=== PATIENT | male | born 1995 | race Caucasian/White ===

== ENCOUNTER 2017-08-10 08:10 | Emergency (ER) | payer MEDICAID, OTHER ==
--- NOTE | 2017-08-10 08:37 | ED Physician Documentation ---
PD HPI ABD PAIN - Stated complaint Stated Complaint: L SIDE ABD PX - Chief complaint Chief Complaint: Abd Pain - History obtained from History obtained from: Patient - History of Present Illness Timing - onset: Yesterday Timing - duration: Days (1) Timing - details: Gradual onset, Still present Quality: Sharp, Pain Location: LLQ Radiation: Left flank Improved by: Laying still Worsened by: Moving, Position, Palpation Associated symptoms: Nausea, Diarrhea Similar symptoms before: Has not had sx before Recently seen: Not recently seen - Additional information Additional information: 22 y/o male previously healthy has developed diarrhea X 2 days and abdominal pain has now begun. He has pain in the left side and the area is tender. He has not had fever or vomiting. He reports green/yellow stool day one then orange yesterday and solid this morning. Review of Systems Constitutional: denies: Fever Eyes: denies: Decreased vision Ears: denies: Ear pain Nose: denies: Congestion Throat: denies: Sore throat Cardiac: denies: Chest pain / pressure, Palpitations Respiratory: denies: Dyspnea, Cough GI: reports: Abdominal Pain, Diarrhea. denies: Vomiting : denies: Dysuria, Frequency Skin: denies: Rash PD PAST MEDICAL HISTORY - Past Surgical History Past Surgical History: No - Present Medications Home Medications: Ambulatory Orders Medication Instructions Recorded Confirmed HYDROcod/ACETAM 5/325 [Morgan 5/325] 1 - 2 ea PO Q6H PRN #15 tablet 08/10/17 - Allergies Allergies/Adverse Reactions: Allergies Allergy/AdvReac Type Severity Reaction Status Date / Time No Known Drug Allergies Allergy Verified 08/10/17 08:17 - Social History Does the pt smoke?: No Smoking Status: Never smoker Does the pt drink ETOH?: No Does the pt have substance abuse?: No - Immunizations Immunizations are current?: Yes - POLST Patient has POLST: No PD ED PE NORMAL - Vitals Vital signs reviewed: Yes (tachy and hypertensive) - General General: Alert and oriented X 3, No acute distress, Well developed/nourished - HEENT HEENT: Atraumatic, PERRL, EOMI - Neck Neck: Supple, no meningeal sign - Cardiac Cardiac: RRR, No murmur - Respiratory Respiratory: No respiratory distress, Clear bilaterally - Abdomen Abdomen: Soft, Other (LLQ tenderness localized and without referred tenderness) - Back Back: No CVA TTP, No spinal TTP - Derm Derm: Normal color, Warm and dry, No rash - Extremities Extremities: No deformity, No edema - Neuro Neuro: No motor deficit, No sensory deficit Eye Opening: Spontaneous Motor: Obeys Commands Verbal: Oriented GCS Score: 15 - Psych Psych: Normal mood, Normal affect Results - Vitals Vitals: Vital Signs - 24 hr 08/10/17 08:14 Temperature 36.2 C L Heart Rate 138 H Respiratory 16 Rate Blood Pressure 138/85 H O2 Saturation 99 Oxygen O2 Source Room air - Labs Labs: Laboratory Tests 08/10/17 08/10/17 08/10/17 08:44 08:44 08:50 WBC 8.6 RBC 5.45 Hgb 16.6 Hct 48.4 MCV 88.7 MCH 30.4 MCHC 34.2 RDW 12.9 Plt Count 244 MPV 6.8 L Neut # 5.4 Lymph # 2.3 [place] # 0.8 Eos # 0.2 Baso # 0.0 Absolute Nucleated RBC 0.00 Nucleated RBC % 0.0 Sodium 138 Potassium 3.7 Chloride 101 Carbon Dioxide 26 Anion Gap 11.0 BUN 17 Creatinine 0.8 Estimated GFR (MDRD) 119 Glucose 101 H Calcium 9.3 Total Bilirubin 0.5 AST 25 ALT 48 Alkaline Phosphatase 65 Total Protein 7.5 Albumin 4.4 Globulin 3.1 Albumin/Globulin Ratio 1.4 Lipase 19 L Urine Color YELLOW Urine Clarity CLEAR Urine pH 6.0 Ur Specific [place] 1.025 Urine Protein NEGATIVE Urine Glucose (UA) NEGATIVE Urine Ketones NEGATIVE Urine Occult Blood NEGATIVE Urine Nitrite NEGATIVE Urine Bilirubin NEGATIVE Urine Urobilinogen 0.2 (NORMAL) Ur Leukocyte Esterase NEGATIVE Ur Microscopic Review NOT INDICATED Urine Culture Comments NOT INDICATED - Rads (name of study) CT ab/pel with Radiology: Prelim report reviewed (Impression: 1. Distal descending colon epiploic appendage otitis.2. Normal appendix. No bowel obstruction. No diverticulitis. 3. Normal CT appearance of the gallbladder and pancreas.), EMP read indepedently, See rad report Procedures - IVC sono (time) 0868 Bedside IVC sono: IVC measures (cm) (1.53), IVC collapsed c insp (cm) (0.78), Euvolemia PD MEDICAL DECISION MAKING - ED course Complexity details: reviewed old records, reviewed results, re-evaluated patient , considered differential, d/w patient ED course: Previously healthy 22-year-old male with acute diarrheal illness and now left lower quadrant pain. On examination he has tenderness to the left lower quadrant he is euvolemic and studies are undertaken. Departure - Departure Disposition: 01 Home, Self Care Clinical Impression: Epiploic appendagitis Condition: Stable Instructions: Abdominal Pain Follow-Up: [facility] [Provider Group] [facility] [Provider Group] Prescriptions: HYDROcod/ACETAM 5/325 [Morgan 5/325] 1 - 2 ea PO Q6H PRN #15 tablet PRN Reason: Pain Comments: Today you have been diagnosed with epiploic appendage otitis. This is a benign condition that should self resolve. You may have pain for up to 14 days. Should not affect your ability to eat and you should not get fever or vomiting associated.
[2017-08-10 08:59] LABS: BASOPHILS % (AUTO) 0.4 %; EOSINOPHILS # (AUTO) 0.2 10^3/uL (0.0-0.7); EOSINOPHILS % (AUTO) 2.2 %; HCT - HEMATOCRIT 48.4 % (42.0-52.0); HGB - HEMOGLOBIN 16.6 g/dL (14.0-18.0); LYMPHOCYTES # (AUTO) 2.3 10^3/uL (1.5-3.5); LYMPHOCYTES % (AUTO) 26.3 %; MEAN CORPUSCULAR HEMOGLOBIN 30.4 pg (27.0-31.0); MEAN CORPUSCULAR HGB CONC 34.2 g/dL (32.0-36.0); MEAN CORPUSCULAR VOLUME 88.7 fL (80.0-94.0); MEAN PLATELET VOLUME 6.8 fL (7.4-11.4); MONOCYTES # (AUTO) 0.8 10^3/uL (0.0-1.0); MONOCYTES % (AUTO) 8.9 %; NEUTROPHILS # (AUTO) 5.4 10^3/uL (1.5-6.6); NEUTROPHILS % (AUTO) 62.2 %; RED BLOOD COUNT 5.45 10^6/uL (4.70-6.10); RED CELL DISTRIBUTION WIDTH 12.9 % (12.0-15.0); UNCORRECTED WHITE BLOOD COUNT 8.6 x10^3/uL; WHITE BLOOD COUNT 8.6 x10^3/uL (4.8-10.8)
[2017-08-10 09:03] LABS: ALBUMIN/GLOBULIN RATIO 1.4 (1.0-2.2); BILIRUBIN,TOTAL 0.5 mg/dL (0.2-1.0); CALCIUM 9.3 mg/dL (8.5-10.3); CREATININE 0.8 mg/dL (0.6-1.2); POTASSIUM 3.7 mmol/L (3.5-5.0); TOTAL PROTEIN 7.5 g/dL (6.7-8.2)
[2017-08-10 09:05] LABS: BILIRUBIN,URINE NEGATIVE (NEGATIVE)
[2017-08-10 09:07] LABS: UA CHARGE (STRIP ONLY) YES; UR CULTURE IF IND NOT INDICATED
[2017-08-10] MEDS ORDERED: IOPAMIDOL-300 100 ML VIAL IVP ONE (09:49)
[2017-08-10] MEDS ORDERED: IOPAMIDOL-300 100 ML VIAL ONE (09:57)
--- NOTE | 2017-08-10 10:11 | CT Preliminary Report ---
Exam: CT ABDOMEN/PELVIS W/ IMPRESSION: 1. Distal descending colon epiploic appendagitis. 2. Normal appendix. No bowel obstruction. No diverticulitis. 3. Normal CT appearance of the gallbladder and pancreas. [facility] SITE ID: [id number]
--- NOTE | 2017-08-10 10:13 | CT Report ---
EXAM: CT ABDOMEN AND PELVIS EXAM DATE: 08/10/2017 09:44 AM. CLINICAL HISTORY: LLQ tenderness. COMPARISONS: None. TECHNIQUE: Routine helical CT imaging was performed through the abdomen and pelvis. IV contrast: 100M L OF ISOVUE 300. Enteric contrast: No. Reconstructions: Coronal and sagittal. In accordance with CT protocol optimization, one or more of the following dose reduction techniques w ere utilized for this exam: automated exposure control, adjustment of mA and/or KV based on patient s ize, or use of iterative reconstructive technique. FINDINGS: Lung Bases: Minimal basilar scar/atelectasis. Included portions of the heart are unremarkable. Liver: Mild fatty liver. No hepatic lesions. Gallbladder/Bile Ducts: Unremarkable. Spleen: Normal. Pancreas: Normal. Adrenal Glands: Normal. Kidneys: Normal. No masses or hydronephrosis. Peritoneal Cavity/Bowel: Small bowel is unremarkable. No small bowel wall thickening. No bowel obstru ction. Small to moderate volume of stool is seen in the colon. Along the ventral margin of the distal descending colon there is mild stranding largely surrounding a focus of fat with a central focus of high density, findings are consistent with focal epiploic appendagitis. No evidence of diverticulitis . The appendix is well visualized and normal. Pelvic Organs: Normal. The bladder and visualized pelvic organs are within normal limits. Vasculature: No aneurysms or other significant abnormality. Bones: No significant abnormality. Other: None. IMPRESSION: 1. Distal descending colon epiploic appendagitis. 2. Normal appendix. No bowel obstruction. No diverticulitis. 3. Normal CT appearance of the gallbladder and pancreas. [facility] Referring Provider Line: [phone] SITE ID: [id number]
[2017-08-10 10:58] VITALS: BP 137/91
== END 2017-08-10 11:01 | disposition home or self-care (01) ==
LOC: ED 08:10
DX: K63.89 Other specified diseases of intestine (principal)
CPT/HCPCS: 36415; 74177; 80053; 81003; 83690; 85025; 87045; 87046; 99283; 99284; Q9967; 81001; 87086

== ENCOUNTER 2018-12-08 13:22 | Outpatient (CLI) | payer OTHER | END 2018-12-08 13:23 | disposition home or self-care (01) | LOC: RT 13:22 | PROVIDERS: ATTEND Nurse Practitioner Gerontology | DX: R06.02 Shortness of breath (principal) | CPT/HCPCS: 94010 ==

== ENCOUNTER 2019-01-14 08:50 | Outpatient (CLI) | payer OTHER | END 2019-01-14 08:51 | disposition home or self-care (01) | LOC: SC 08:50 | PROVIDERS: ATTEND Nurse Practitioner Family | DX: G47.10 Hypersomnia, unspecified (principal); R41.89 Other symptoms and signs involving cognitive functions and awareness; G47.8 Other sleep disorders; R06.83 Snoring | CPT/HCPCS: 99203; 99212 ==

== ENCOUNTER 2019-01-17 19:44 | Outpatient (CLI) | payer OTHER | END 2019-01-17 19:45 | disposition home or self-care (01) | LOC: SC 19:44 | PROVIDERS: ATTEND Internal Medicine Pulmonary Disease | DX: G47.61 Periodic limb movement disorder (principal); R06.83 Snoring | CPT/HCPCS: 95810 ==

== ENCOUNTER 2019-02-05 10:08 | Outpatient (CLI) | payer OTHER | END 2019-02-05 10:09 | disposition home or self-care (01) | LOC: SC 10:08 | PROVIDERS: ATTEND Nurse Practitioner Family | DX: R06.83 Snoring (principal); G47.61 Periodic limb movement disorder | CPT/HCPCS: 99212; 99214 ==

== ENCOUNTER 2019-03-27 13:24 | Outpatient (CLI) | payer OTHER | END 2019-03-27 13:25 | disposition home or self-care (01) | LOC: SC 13:24 | PROVIDERS: ATTEND Nurse Practitioner Family | DX: R06.83 Snoring (principal) | CPT/HCPCS: 99212; 99213 ==

== ENCOUNTER 2020-06-01 08:00 | Outpatient (CLI) | payer OTHER ==
[2020-06-01 19:09] LABS: ALBUMIN 4.5 g/dL (3.2-5.5); ALBUMIN/GLOBULIN RATIO 1.6 (1.0-2.2); ALKALINE PHOSPHATASE 59 IU/L (42-121); ALT ALANINE AMINOTRANSFERASE 34 IU/L (10-60); AST ASPARTATE AMINOTRANSFERASE 21 IU/L (10-42); BASOPHILS % (AUTO) 0.2 %; BILIRUBIN,TOTAL 0.9 mg/dL (0.2-1.0); BUN - BLOOD UREA NITROGEN 10 mg/dL (6-20); CALCIUM 9.5 mg/dL (8.5-10.3); CARBON DIOXIDE - CO2 25 mmol/L (21-32); CHLORIDE 101 mmol/L (101-111); CHOL/HDL RATIO 5.6 (<5.0); CHOLESTEROL 211 mg/dL; CREATININE 0.7 mg/dL (0.6-1.2); EOSINOPHILS # (AUTO) 0.1 10^3/uL (0.0-0.7); EOSINOPHILS % (AUTO) 1.3 %; GLUCOSE 102 mg/dL (70-100); HDL CHOLESTEROL 38 mg/dL; HGB - HEMOGLOBIN 15.5 g/dL (14.0-18.0); LDL CHOLESTEROL,CALCULATED 154 mg/dL; LDL/HDL RATIO 4.1 (<3.6); LYMPHOCYTES # (AUTO) 1.9 10^3/uL (1.5-3.5); LYMPHOCYTES % (AUTO) 22.4 %; MEAN CORPUSCULAR HEMOGLOBIN 29.6 pg (27.0-31.0); MEAN CORPUSCULAR VOLUME 92.4 fL (80.0-94.0); MEAN PLATELET VOLUME 8.9 fL (7.4-11.4); MONOCYTES # (AUTO) 0.5 10^3/uL (0.0-1.0); MONOCYTES % (AUTO) 6.3 %; NEUTROPHILS # (AUTO) 5.8 10^3/uL (1.5-6.6); NEUTROPHILS % (AUTO) 69.4 %; PLT - PLATELET COUNT 302 10^3/uL (130-450); RED BLOOD COUNT 5.24 10^6/uL (4.70-6.10); RED CELL DISTRIBUTION WIDTH 12.7 % (12.0-15.0); SODIUM 136 mmol/L (135-145); TOTAL PROTEIN 7.4 g/dL (6.7-8.2); VLDL CHOLESTEROL 19 mg/dL; WHITE BLOOD COUNT 8.4 x10^3/uL (4.8-10.8)
== END 2020-06-01 23:59 | disposition home or self-care (01) ==
LOC: LAB.WCP 08:00
PROVIDERS: ATTEND Nurse Practitioner Family
DX: R19.7 Diarrhea, unspecified (principal); Z13.9 Encounter for screening, unspecified; R68.2 Dry mouth, unspecified; H04.123 Dry eye syndrome of bilateral lacrimal glands
CPT/HCPCS: 36415; 80053; 80061; 83516; 83721; 84443; 85025; 85651; 86038

== ENCOUNTER 2021-07-05 17:45 | Outpatient (CLI) | payer OTHER ==
--- NOTE | 2021-07-06 08:55 | XRAY Report ---
PROCEDURE: Knee 4 View BILAT INDICATIONS: PAIN OF BILATERAL KNEE JOINTS TECHNIQUE: 4 views of the bilateral knee(s) were acquired. COMPARISON: None. FINDINGS: Bones: No fractures or dislocations. No suspicious bony lesions. Soft tissues: No joint effusion. No suspicious soft tissue calcifications. IMPRESSION: Normally preserved joint spaces bilaterally. Reviewed by: Trini Ta MD on 07/06/2021 8:54 AM PDT Approved by: Trini Ta MD on 07/06/2021 8:54 AM PDT Station ID: [id number]
== END 2021-07-05 17:46 | disposition home or self-care (01) ==
LOC: DI 17:45
PROVIDERS: ATTEND Nurse Practitioner Family
DX: M25.562 Pain in left knee (principal); M25.561 Pain in right knee

== ENCOUNTER 2022-08-07 15:01 | Emergency (ER) | payer MEDICAID, OTHER ==
[2022-08-07] MEDS ORDERED: ONDANSETRON ODT 4 MG TABLET TL STA (15:39)
[2022-08-07 15:59] LABS: BASOPHILS % (AUTO) 0.3 %; EOSINOPHILS # (AUTO) 0.1 10^3/uL (0.0-0.7); EOSINOPHILS % (AUTO) 0.6 %; HCT - HEMATOCRIT 46.5 % (42.0-52.0); HGB - HEMOGLOBIN 15.4 g/dL (14.0-18.0); LYMPHOCYTES # (AUTO) 1.8 10^3/uL (1.5-3.5); LYMPHOCYTES % (AUTO) 15.6 %; MEAN CORPUSCULAR HEMOGLOBIN 30.1 pg (27.0-31.0); MEAN CORPUSCULAR HGB CONC 33.1 g/dL (32.0-36.0); MEAN CORPUSCULAR VOLUME 90.8 fL (80.0-94.0); MEAN PLATELET VOLUME 8.6 fL (7.4-11.4); MONOCYTES # (AUTO) 0.5 10^3/uL (0.0-1.0); MONOCYTES % (AUTO) 4.6 %; NEUTROPHILS # (AUTO) 8.8 10^3/uL (1.5-6.6); NEUTROPHILS % (AUTO) 78.6 %; PLT - PLATELET COUNT 264 10^3/uL (130-450); RED BLOOD COUNT 5.12 10^6/uL (4.70-6.10); RED CELL DISTRIBUTION WIDTH 12.5 % (12.0-15.0); WHITE BLOOD COUNT 11.2 x10^3/uL (4.8-10.8)
[2022-08-07 16:12] LABS: ALBUMIN 4.7 g/dL (3.2-5.5); ALBUMIN/GLOBULIN RATIO 1.7 (1.0-2.2); BILIRUBIN,TOTAL 0.8 mg/dL (0.2-1.0); CALCIUM 9.2 mg/dL (8.5-10.3); CREATININE 0.7 mg/dL (0.6-1.2); POTASSIUM 4.2 mmol/L (3.5-5.0); TOTAL PROTEIN 7.5 g/dL (6.7-8.2)
[2022-08-07 16:40] LABS: GLUCOSE, URINE (UA) NEGATIVE (NEGATIVE); KETONES,URINE (UA) >=80 mg/dL (NEGATIVE); LEUKOCYTE ESTERASE, URINE NEGATIVE (NEGATIVE); NITRITE,URINE NEGATIVE (NEGATIVE); OCCULT BLOOD,URINE NEGATIVE (NEGATIVE); PROTEIN,URINE NEGATIVE (NEGATIVE); UROBILINOGEN,URINE 0.2 (NORMAL) E.U./dL (NORMAL)
[2022-08-07 16:57] LABS: BILIRUBIN,URINE NEGATIVE (NEGATIVE); CLARITY,URINE CLEAR (CLEAR); ICTOTEST,URINE NEGATIVE
[2022-08-07] MEDS ORDERED: KETOROLAC 15 MG/ML VIAL IVP STA (17:41)
--- NOTE | 2022-08-07 17:42 | ED Physician Documentation ---
PD HPI ABD PAIN - Stated complaint Stated Complaint: ABD PX - Chief complaint Chief Complaint: Abd Pain - History obtained from History obtained from: Patient - Additional information Additional information: 27-year-old gentleman who is relatively healthy had decreased bowel movements over the last few days and now more acutely has lower abdominal pain. He did note 1 episode of a very small amount of hematochezia today. He tried MiraLAX which was not helpful. Went to urgent care and felt there was a concern for appendicitis so sent here. No fevers. No history of abdominal surgeries. He does not note any changes in life events that would have caused him to become constipated over the last few days. Review of Systems Ten Systems: 10 systems reviewed and negative Constitutional: denies: Fever, Chills Cardiac: reports: Reviewed and negative Respiratory: reports: Reviewed and negative PD PAST MEDICAL HISTORY - Past Surgical History Past Surgical History: No - Present Medications Home Medications: Ambulatory Orders Medication Instructions Recorded Confirmed Amox/Clav 875/125 [Augmentin] 1 each PO Q12H #20 tablet 08/07/22 Propranolol [Inderal] 20 mg PO TID 08/07/22 08/07/22 buPROPion [Wellbutrin Xl] 150 mg PO DAILY 08/07/22 08/07/22 - Allergies Allergies/Adverse Reactions: Allergies Allergy/AdvReac Type Severity Reaction Status Date / Time No Known Drug Allergies Allergy Verified 08/07/22 15:38 - Social History Does the pt smoke?: No Smoking Status: Never smoker Does the pt drink ETOH?: No Does the pt have substance abuse?: No - Immunizations Immunizations are current?: Yes - POLST Patient has POLST: No PD ED PE NORMAL - Vitals Vital signs reviewed: Yes - General General: Alert and oriented X 3, No acute distress - HEENT HEENT: PERRL, EOMI - Neck Neck: Supple, no meningeal sign, No bony TTP - Cardiac Cardiac: RRR, No murmur - Respiratory Respiratory: No respiratory distress, Clear bilaterally - Abdomen Abdomen: Normal bowel sounds, Soft, Other (Mod RLQ TTP, No G/R/M) - Back Back: No CVA TTP, No spinal TTP - Derm Derm: Normal color, Warm and dry - Extremities Extremities: No edema, No calf tenderness / cord - Neuro Neuro: Alert and oriented X 3, Normal speech Results - Vitals Vitals: Vital Signs - 24 hr 12/05/22 12/05/22 12/05/22 15:34 18:55 19:43 Temperature 36.7 C 36.7 C 36.6 C Heart Rate 106 H 81 68 Respiratory 20 16 16 Rate Blood Pressure 156/77 H 125/73 131/74 H O2 Saturation 100 100 99 Oxygen O2 Source Room air - Labs Labs: Laboratory Tests 08/07/22 08/07/22 08/07/22 15:42 15:51 15:51 WBC 11.2 H RBC 5.12 Hgb 15.4 Hct 46.5 MCV 90.8 MCH 30.1 MCHC 33.1 RDW 12.5 Plt Count 264 MPV 8.6 Neut # (Auto) 8.8 H Lymph # (Auto) 1.8 [place] # (Auto) 0.5 Eos # (Auto) 0.1 Baso # (Auto) 0.0 Absolute Nucleated RBC 0.00 Nucleated RBC % 0.0 Sodium 137 Potassium 4.2 Chloride 98 L Carbon Dioxide 27 Anion Gap 12.0 BUN 10 Creatinine 0.7 Estimated GFR (MDRD) 133 Glucose 100 Calcium 9.2 Total Bilirubin 0.8 AST 18 ALT 17 Alkaline Phosphatase 56 Total Protein 7.5 Albumin 4.7 Globulin 2.8 Albumin/Globulin Ratio 1.7 Lipase 30 Urine Color YELLOW Urine Clarity CLEAR Urine pH 6.0 Ur Specific [place] >=1.030 H Urine Protein NEGATIVE Urine Glucose (UA) NEGATIVE Urine Ketones >=80 H Urine Occult Blood NEGATIVE Urine Nitrite NEGATIVE Urine Bilirubin NEGATIVE Urine Urobilinogen 0.2 (NORMAL) Ur Leukocyte Esterase NEGATIVE Ur Microscopic Review NOT INDICATED Urine Culture Comments NOT INDICATED - Rads (name of study) CT abdomen pelvis concerning for very early appendicitis. Radiology: EMP read contemporaneously PD MEDICAL DECISION MAKING - ED course ED course: 27-year-old gentleman presents with abdominal pain associate with constipation and a small amount of hematochezia and concern for appendicitis. CT imaging was done with results as noted. Case discussed by phone with Dr. Sharp, our on-call surgeon. Given that the appendix is still technically normal and his exam is not too concerning recommends a dose of IV Zosyn and then a recheck in 12 hours unless completely better. Departure - Departure Disposition: 01 Home, Self Care Clinical Impression: Abdominal pain Qualifiers: Abdominal location: right lower quadrant Qualified Code(s): R10.31 - Right lower quadrant pain Condition: Good Record reviewed to determine appropriate education?: Yes Instructions: ED Abdominal Pain Appendx Poss Prescriptions: Amox/Clav 875/125 [Augmentin] 1 each PO Q12H #20 tablet Comments: You are seen today for abdominal pain and the CAT scan was concerning for may be very early appendicitis, but not clear enough to take you to the operating room at this time. The on-call surgeon, Dr. Sharp recommended that we gave you a dose of IV antibiotics and then have you return tomorrow morning unless completely better for recheck. In that case it would be best to return around 8:53 AM as the weights are generally shorter. Return sooner if worse. Discharge Date/Time: 08/07/22 19:53
[2022-08-07] MEDS ORDERED: iohexoL-300 100 ML VIAL ONE (17:47)
--- NOTE | 2022-08-07 18:51 | CT Report ---
PROCEDURE: ABDOMEN/PELVIS W INDICATIONS: IV only, rlq pain CONTRAST: 100mL Omni 300 TECHNIQUE: After the administration of contrast, 5 mm thick sections acquired from the diaphragms to the sym physis. 5 mm thick coronal and sagittal reformats were acquired. For radiation dose reduction, the following was used: automated exposure control, adjustment of mA and/or kV according to patient size . COMPARISON: None. FINDINGS: Image quality: Good Lower chest: Unremarkable Solid organs: The liver is unremarkable. Gallbladder is unremarkable. No pathologic dilation of the b iliary tree or pancreatic duct. No splenomegaly. No adrenal nodules. No hydronephrosis. Vessels and lymph nodes: No abdominal aortic aneurysm or pathologic adenopathy by size criteria. Bowel and peritoneum: No bowel obstruction. The appendix is seen arising from the medialized cecum, m easuring just over 6 mm. There might be some hyperemia. No fluid collection. No pathologic ascites. Body wall: Fat and omentum-containing umbilical hernia. This was present previously. Pelvis: Prominent seminal vesicles as before. Bones: No acute or suspicious osseous abnormality. IMPRESSION: The appendix is identified, measuring at the upper limit of normal and is slightly increased in size compared to prior CT in 2017. No abscess. Findings are equivocal for early appendicitis and clinical correlation is advised. Other findings as above. Reviewed by: Alessandro Renteria MD on 08/07/2022 6:50 PM PST Approved by: Alessandro Renteria MD on 08/07/2022 6:50 PM PST Station ID: [id number]
[2022-08-07] MEDS ORDERED: PIPERACILLIN/TAZOBACTAM 3.375 GM in SODIUM CHLORIDE 0.9% MINIBAG 100 ML IV STA (18:56)
[2022-08-07] MEDS ORDERED: iohexoL-300 100 ML VIAL IVP ONE (19:38)
[2022-08-07 19:45] VITALS: BP 131/74
== END 2022-08-07 19:53 | disposition home or self-care (01) ==
LOC: ED 15:01
DX: R10.30 Lower abdominal pain, unspecified (principal); K92.1 Melena; K59.00 Constipation, unspecified
CPT/HCPCS: 36415; 74177; 80053; 81003; 83690; 85025; 96365; 96375; 99282; 99284; Q0162; Q9967; 81001; 87086

== ENCOUNTER 2022-08-08 08:19 | Day surgery (SDC) | payer MEDICAID ==
--- NOTE | 2022-08-08 08:23 | ED Physician Documentation ---
PD HPI ABD PAIN - Stated complaint Stated Complaint: ABD PX/FOLLOW UP - History obtained from History obtained from: Patient - History of Present Illness Timing - onset: How many days ago (2) Timing - duration: Days (2) Timing - details: Gradual onset, Still present (had the worst of the pain yesterday when came to ER. He states it is slightly better overnight, but still very painful when moving or walking or with palpation. Had emesis once last night. Taking water PO small amounts. Had one BM last night, formed, without improvement in pain. Here for recheck.) Quality: Aching, Pain Location: Periumbilical, RLQ Associated symptoms: Nausea, Vomiting (once during the night). No: Fever, Diarrhea Similar symptoms before: Has not had sx before Recently seen: Emergency Dept (yesterday in walk in and sent to ER. Had labs and CT scan. Concern for early appendicitis clinically and on CT but not definitive.) Review of Systems Constitutional: denies: Fever, Myalgias Nose: denies: Rhinorrhea / runny nose, Congestion Throat: denies: Sore throat Respiratory: denies: Cough GI: reports: Abdominal Pain, Nausea. denies: Diarrhea, Bloody / black stool : denies: Dysuria, Frequency Skin: denies: Rash PD PAST MEDICAL HISTORY - Past Medical History Cardiovascular: None Respiratory: None Neuro: None Endocrine/Autoimmune: None GI: None - Past Surgical History Past Surgical History: No - Present Medications Home Medications: Ambulatory Orders Medication Instructions Recorded Confirmed Amox/Clav 875/125 [Augmentin] 1 each PO Q12H #20 tablet 08/07/22 Propranolol [Inderal] 20 mg PO TID 08/07/22 08/07/22 buPROPion [Wellbutrin Xl] 150 mg PO DAILY 08/07/22 08/07/22 - Allergies Allergies/Adverse Reactions: Allergies Allergy/AdvReac Type Severity Reaction Status Date / Time No Known Drug Allergies Allergy Verified 08/07/22 15:38 - Social History Does the pt smoke?: No Smoking Status: Never smoker Does the pt drink ETOH?: No Does the pt have substance abuse?: No - Immunizations Immunizations are current?: Yes - POLST Patient has POLST: No PD ED PE NORMAL - Vitals Vital signs reviewed: Yes - General General: Alert and oriented X 3, Well developed/nourished, Other (appears uncomfortable. Walking in shuffling way. ) - Neck Neck: Supple, no meningeal sign, No adenopathy - Cardiac Cardiac: RRR, No murmur - Respiratory Respiratory: Clear bilaterally - Abdomen Abdomen: Non distended, No organomegaly, Other (He is tender to palpation in the right lower periumbilical area towards the right lower quadrant. There is guarding as well as percussion tenderness. There is rebound tenderness through the abdomen. Referred tenderness from the left abdomen to the right. No hernia felt. ). No: Normal bowel sounds (diminished) - Male Male : Deferred - Rectal Rectal: Deferred - Back Back: No CVA TTP - Derm Derm: Normal color, Warm and dry Results - Vitals Vitals: Vital Signs - 24 hr 08/08/22 08:31 Temperature 37.1 C Heart Rate 98 Respiratory 18 Rate Blood Pressure 153/78 H O2 Saturation 99 Oxygen O2 Source Room air - Labs Labs: Laboratory Tests 08/08/22 08/08/22 08:41 08:41 WBC 8.8 RBC 5.04 Hgb 15.1 Hct 45.6 MCV 90.5 MCH 30.0 MCHC 33.1 RDW 12.6 Plt Count 239 MPV 8.6 Neut # (Auto) 6.0 Lymph # (Auto) 1.9 [place] # (Auto) 0.6 Eos # (Auto) 0.2 Baso # (Auto) 0.0 Absolute Nucleated RBC 0.00 Nucleated RBC % 0.0 Sodium 138 Potassium 4.0 Chloride 100 L Carbon Dioxide 29 Anion Gap 9.0 BUN 14 Creatinine 0.8 Estimated GFR (MDRD) 114 Glucose 137 H Calcium 9.2 C-Reactive Protein < 1.0 PD MEDICAL DECISION MAKING - ED course Complexity details: reviewed results, considered differential (Abdominal pain and progression concerning for appendicitis. His white count slightly elevated yesterday. CT scan equivocal for early appendicitis. Directed to recheck today if still hurting. Here as directed. Exam is concerning for peritoneal process in the appendiceal area.), d/w patient, d/w sales enablement consultant (Dr. Sharp, [facility]. ) Departure - Departure Disposition: ED Transfer to [facility] Clinical Impression: Abdominal pain Qualifiers: Abdominal location: right lower quadrant Qualified Code(s): R10.31 - Right lower quadrant pain Appendicitis Qualifiers: Appendicitis type: acute appendicitis Acute appendicitis type: with localized peritonitis Appendicitis gangrene presence: without gangrene Appendicitis perforation presence: without perforation Appendicitis abscess presence: without abscess Qualified Code(s): K35.30 - Acute appendicitis with localized peritonitis, without perforation or gangrene Condition: Stable Record reviewed to determine appropriate education?: Yes
[2022-08-08 08:48] LABS: BASOPHILS % (AUTO) 0.1 %; EOSINOPHILS # (AUTO) 0.2 10^3/uL (0.0-0.7); EOSINOPHILS % (AUTO) 2.6 %; HCT - HEMATOCRIT 45.6 % (42.0-52.0); HGB - HEMOGLOBIN 15.1 g/dL (14.0-18.0); LYMPHOCYTES # (AUTO) 1.9 10^3/uL (1.5-3.5); LYMPHOCYTES % (AUTO) 21.6 %; MEAN CORPUSCULAR HGB CONC 33.1 g/dL (32.0-36.0); MEAN CORPUSCULAR VOLUME 90.5 fL (80.0-94.0); MEAN PLATELET VOLUME 8.6 fL (7.4-11.4); MONOCYTES # (AUTO) 0.6 10^3/uL (0.0-1.0); MONOCYTES % (AUTO) 7.2 %; NEUTROPHILS % (AUTO) 68.3 %; PLT - PLATELET COUNT 239 10^3/uL (130-450); RED BLOOD COUNT 5.04 10^6/uL (4.70-6.10); RED CELL DISTRIBUTION WIDTH 12.6 % (12.0-15.0); WHITE BLOOD COUNT 8.8 x10^3/uL (4.8-10.8)
[2022-08-08 09:06] LABS: BUN - BLOOD UREA NITROGEN 14 mg/dL (6-20); CALCIUM 9.2 mg/dL (8.5-10.3); CARBON DIOXIDE - CO2 29 mmol/L (21-32); CHLORIDE 100 mmol/L (101-111); CREATININE 0.8 mg/dL (0.6-1.2); GFR - MDRD 114 (>89); GLUCOSE 137 mg/dL (70-100); SODIUM 138 mmol/L (135-145)
[2022-08-08 09:15] LABS: CRP - C-REACTIVE PROTEIN < 1.0 mg/dL (0-1.0)
--- NOTE | 2022-08-08 10:19 | HISTORY & PHYSICAL EXAMINATION ---
History and Physical - History and Physical See paper H&P in chart. Patient with continued pain, worse with movement and nausea. He has not taken home meds this morning, but did take them during my visit. PE and current status consistent with acute appendicitis despite reassuring labs and imaging. I discussed options with the patient including continued antibiotics vs surgery. We discussed risks of surgery including bleeding, infection, and damage to surrounding structures. He voiced understanding, his questions were answered, and he elected to proceed with surgery. Consent signed by patient. He had a croissant for breakfast at 0800. Plan for lap appendectomy this PM. NPO, ERAS meds, prn pain and nausea meds ordered. Likely discharge from recovery.
[2022-08-08] MEDS ORDERED: LACTATED RINGERS 1,000 ML IV STA (10:36)
[2022-08-08] MEDS ORDERED: LACTATED RINGERS 1,000 ML IV SCH ×2 (11:00→14:00)
[2022-08-08] MEDS ORDERED: LACTATED RINGERS 1,000 ML IV ONE ×2 (11:43→15:11)
[2022-08-08] MEDS ORDERED: LIDOCAINE MPF 2%-EPI 1:200000 20 ML VIAL ONE (12:30)
[2022-08-08] MEDS ORDERED: BUPIVACAINE 0.25% PF 10 ML VIAL ONE (12:30)
--- NOTE | 2022-08-08 13:20 | ANESTHESIA ---
Pre-Anesthesia VS, & Labs - Diagnosis lap appy - Procedure lap appy Vital Signs: Temp Pulse Resp BP Pulse Ox O2 Flow Rate 37 C 68 18 122/81 H 97 08/08/22 11:07 08/08/22 11:07 08/08/22 11:07 08/08/22 11:07 08/08/22 11:07 Height: 5 ft 9 in Weight (kg): 86.183 kg Body Mass Index: 28.0 BMI Classification: Overweight - NPO Other (light meal at 0600) - Lab Results Current Lab Results: Laboratory Tests 08/08/22 08:41: Sodium 138, Potassium 4.0, Chloride 100 L, Carbon Dioxide 29, Anion Gap 9.0, BUN 14, Creatinine 0.8, Estimated GFR (MDRD) 114, Glucose 137 H, Calcium 9.2, C-Reactive Protein < 1.0 08/08/22 08:41: WBC 8.8, RBC 5.04, Hgb 15.1, Hct 45.6, MCV 90.5, MCH 30.0, MCHC 33.1, RDW 12.6, Plt Count 239, MPV 8.6, Neut # (Auto) 6.0, Lymph # (Auto) 1.9, [place] # (Auto) 0.6, Eos # (Auto) 0.2, Baso # (Auto) 0.0, Absolute Nucleated RBC 0.00, Nucleated RBC % 0.0 Fish Bones: 08/08/22 08:41 08/08/22 08:41 Home Medications and Allergies Active Medications Lactated Ringer's (Lr) 1,000 mls @ 150 mls/hr IV .Q6H40M KUNAL Lactated Ringer's (Lr) 1,000 mls @ 125 mls/hr IV .Q8H STA Stop: 08/08/22 18:35 Propranolol [Inderal] 20 mg PO TID 08/07/22 buPROPion [Wellbutrin Xl] 150 mg PO DAILY 08/07/22 Allergies/Adverse Reactions: Allergies Allergy/AdvReac Type Severity Reaction Status Date / Time No Known Drug Allergies Allergy Verified 08/07/22 15:38 Anes History & Medical History - Anesthetic History Anesthesia Complications: reports: No previous complications Family history of Anesthesia Complications: Denies Family history of Malignant Hyperthermia: Denies - Medical History Cardiovascular: reports: Other Pulmonary: reports: None Gastrointestinal: reports: None Neuro: reports: None Endocrine/Autoimmune: reports: None Smoking Status: Never smoker Psychosocial: reports: Cannabis (pt reports he uses the equivalent of 4G/day) - Surgical History Eyes Ears Nose Throat (EENT): reports: Myringotomy (tubes), Tonsil/Adenoidectomy Exam General: Alert, Oriented x3, Cooperative Dental: WNL Mouth Openin Fingerbreadth Neck Mobility: Normal Mallampati classification: II Thyromental Distance: 4-6 cm Respiratory: Lungs clear Cardiovascular: Regular rate (big abernathy) Plan Anesthesia Type: General Consent for Procedure(s) Verified and Reviewed: Yes Code Status: Attempt Resuscitation ASA classification: 2-Mild systemic disease Is this case an emergency?: No
[2022-08-08] MEDS ORDERED: HYDROmorphone 0.5 MG/0.5 ML SYRINGE IVP PRN ×2 (13:26→15:01)
[2022-08-08] MEDS ORDERED: MORPHINE 2 MG/ML CARPUJECT IVP PRN (13:26)
[2022-08-08] MEDS ORDERED: ATROPINE ABBOJECT 1 MG/10 ML SYRINGE IVP PRN (13:26)
[2022-08-08] MEDS ORDERED: NALOXONE 0.4 MG/ML VIAL IVP PRN (13:26)
[2022-08-08] MEDS ORDERED: ONDANSETRON 4 MG/2 ML VIAL IVP PRN ×2 (13:26→15:01)
[2022-08-08] MEDS ORDERED: fentaNYL 100 MCG/2 ML VIAL IVP PRN (13:26)
[2022-08-08] MEDS ORDERED: ePHEDrine 50 MG/ML VIAL IVP PRN (13:26)
[2022-08-08] MEDS ORDERED: ACETAMINOPHEN 1,000 MG/100 ML 1,000 MG/100 ML BAG IV ONE (13:41)
[2022-08-08] MEDS ORDERED: DEXAMETHASONE 4 MG/ML VIAL ONE (13:41)
[2022-08-08] MEDS ORDERED: ROCURONIUM 50 MG/5 ML VIAL ONE (13:41)
[2022-08-08] MEDS ORDERED: PROPOFOL 200 MG/20 ML VIAL IVP ONE ×4 (13:41→15:04)
[2022-08-08] MEDS ORDERED: MIDAZOLAM 2 MG/2 ML VIAL ONE ×2 (13:42→13:51)
[2022-08-08] MEDS ORDERED: fentaNYL 100 MCG/2 ML VIAL ONE (14:10)
[2022-08-08] MEDS ORDERED: ceFAZolin 1 GM VIAL ONE (14:14)
[2022-08-08] MEDS ORDERED: metroNIDAZOLE 500 MG/100 ML 500 MG/100 ML BAG ONE (14:15)
[2022-08-08] MEDS ORDERED: BUPIVACAINE 0.25% PF 30 ML VIAL SUBQ ONE (14:24)
[2022-08-08] MEDS ORDERED: SUGAMMADEX 200 MG/2 ML VIAL IVP ONE (14:51)
[2022-08-08] MEDS ORDERED: KETOROLAC 30 MG/ML VIAL ONE (14:51)
[2022-08-08] MEDS ORDERED: HYDROcod/ACETAM 5/325 MG TABLET PO PRN (15:01)
--- NOTE | 2022-08-08 15:06 | OPERATIVE REPORT ---
Operative Report - General Procedure Date: 08/08/22 Planned Procedure: Laparoscopic appendectomy Pre-Op Diagnosis: Acute appendicitis Procedure Performed: Laparoscopic appendectomy, diagnostic laparoscopy Post Op Diagnosis: possible early acute appendicitis - Procedure Note Primary Surgeon: Dr. Alejandrina Sharp Anesthesia Technique: General ET tube, Local Estimated Blood Loss (mL): 20 Indications: The patient has a 3-day history of abdominal pain in the periumbilical region which is constant and achy in nature. His pain is made worse with activity and is associated with nausea and vomiting. His laboratory studies and imaging are reassuring, however his exam is consistent with acute appendicitis. We discussed the risks, benefits, and alternatives of laparoscopic appendectomy preoperatively. Risks include but are not limited to bleeding, infection, damage to surrounding structures, and the need for further surgeries or procedures. The patient voiced understanding, his questions were answered, and he wished to proceed. PAR-Q. A consent was signed by the patient in the emergency department. Findings: 1. Slightly inflamed appendix 2. No Meckel's diverticulum identified Complications: none - Other Other Information/Narrative: The patient was brought to the operative suite and placed in the supine position. General endotrachealanesthesia was induced. A Clay catheter was placed; urine was noted to be blood-tinged and a urinalysis was collected. Preoperative antibiotics were given. ERAS protocol was not followed due to the patient's pre op nausea. A preop surgical timeout was performed. Local anesthetic was injected into the skin and subcutaneous tissues just superior to the umbilicus. An 11 blade scalpel was used to make a 5 mm transverse skin incision in this location. Next, a hemostat was used to spread the tissues down to the level of the fascia and a Tima clamp was used to grasp and elevate the umbilical stalk. A Varess needle was used to gain access to the peritoneal space. Low flow insufflation revealed low pressures and then high flow insufflation was undertaken to 15 mmHg. Next, the Varess needle was removed and a 5 mm laparoscopic port was inserted in this location. Through this port, a 5 mm 30 degree laparoscope was inserted. On inspection of the abdomen no injury was caused on entry. Next, the patient was placed in Trendelenburg and rotated slightly to the left. 2 more ports were inserted. A 5 mm port was inserted in the suprapubic region, and a 12 mm port was inserted in the left lower quadrant. Both ports were placed by first anesthetizing the skin and subcutaneous tissues with local anesthetic, then by making an appropriate length incision with an 11 blade scalpel, and finally by placing the port under direct laparoscopic vision. Once the ports were in place, 2 atraumatic graspers were used to identify the area of concern. The appendix, terminal ileum, and cecum were identified. A window was made at the base of the appendix in the mesoappendix using a [place] grasper. Next, a 45 cm laparoscopic stapler with a white load was used to come across the mesoappendix. The was a small amount of oozing from the staple line which was controlled with a ligaclip. Then, the base of the appendix was divided with the stapler, using a blue load. Great care was taken to ensure that only the base of the appendix was within the jaws of the stapler and then it was fired. Next, the abdomen was suctioned free of any bloody fluid. The staple lines were inspected and noted to be hemostatic. Next, the appendix was placed in an Endo Catch bag and removed through the left lower quadrant port. The left lower quadrant port was then reinserted. The bowel was run from the terminal ileum approximately 2-1/2 feet. No Meckel's diverticulum was identified. Again, the staple lines were inspected and noted to be hemostatic. Next, a laparoscopic fascial closure device was used to place a single, interrupted 0 Vicryl suture at the left lower quadrant port. This reapproximated the fascia well. The remaining ports were removed under direct laparoscopic vision and the abdomen was deflated. Next, the skin edges were reapproximated with 4-0 Monocryl in an interrupted subcuticular fashion. A sterile dressing of skin glue was placed. The Clay catheter was removed at the end of the case. The patient was extubated in the operating room and transferred to the recovery room in stable condition. There were no complications.
[2022-08-08 15:45] LABS: BILIRUBIN,URINE NEGATIVE (NEGATIVE); GLUCOSE, URINE (UA) NEGATIVE (NEGATIVE); KETONES,URINE (UA) NEGATIVE (NEGATIVE); LEUKOCYTE ESTERASE, URINE TRACE (NEGATIVE); OCCULT BLOOD,URINE LARGE (NEGATIVE); PROTEIN,URINE >=300 mg/dL (NEGATIVE); UROBILINOGEN,URINE 0.2 (NORMAL) E.U./dL (NORMAL)
[2022-08-08 15:47] LABS: CLARITY,URINE CLOUDY (CLEAR)
[2022-08-08 15:48] LABS: RBC,URINE TNTC /HPF (0-5); WBC,URINE 0-3 /HPF (0-3)
[2022-08-08 15:49] LABS: BACTERIA,URINE None Seen /HPF (None Seen); SQUAMOUS EPITHELIAL CELL,UR NONE SEEN (<= Few)
[2022-08-08] MEDS ORDERED: HYDROcod/ACETAM 5/325 MG TABLET ONE (16:36)
[2022-08-08 17:32] VITALS: BP 113/74
--- NOTE | 2022-08-10 09:08 | ANESTHESIA POST OP EVALUATION ---
Anesthesia Post Eval - Post Anesthesia Eval Vitals: Last Vital Signs Temp 36.4 C L 08/08/22 16:49 Pulse 61 08/08/22 17:00 Resp 16 08/08/22 17:00 BP 113/74 08/08/22 17:00 Pulse Ox 98 08/08/22 17:00 O2 Flow Rate CV Function Including HR & BP: Stable Pain Control: Satisfactory Nausea & Vomiting: Negative Mental Status: Baseline Respiratory Status: Airway Patent Hydration Status: Satisfactory Anesthesia Complications: None
== END 2022-08-08 10:33 | disposition home or self-care (01) ==
LOC: ED 08:19 → SDS 10:32
PROVIDERS: ATTEND Surgery
PROC: 0DTJ4ZZ Resection of Appendix, Percutaneous Endoscopic Approach (ICD-10-PCS; principal; 2022-08-08 14:00)
DX: K35.30 Acute appendicitis with localized peritonitis, without perforation or gangrene (principal); F17.220 Nicotine dependence, chewing tobacco, uncomplicated
CPT/HCPCS: 36415; 44970; 80048; 81001; 85025; 86140; 99284; 99285; A9270; J0131; J7120; 81003

== ENCOUNTER 2022-08-11 12:10 | Emergency (ER) | payer MEDICAID ==
[2022-08-11 12:21] VITALS: BP 153/52
[2022-08-11 12:33] LABS: BASOPHILS % (AUTO) 0.2 %; EOSINOPHILS # (AUTO) 0.3 10^3/uL (0.0-0.7); EOSINOPHILS % (AUTO) 2.3 %; HCT - HEMATOCRIT 45.9 % (42.0-52.0); HGB - HEMOGLOBIN 15.1 g/dL (14.0-18.0); LYMPHOCYTES % (AUTO) 15.8 %; MEAN CORPUSCULAR HEMOGLOBIN 30.2 pg (27.0-31.0); MEAN CORPUSCULAR HGB CONC 32.9 g/dL (32.0-36.0); MEAN CORPUSCULAR VOLUME 91.8 fL (80.0-94.0); MEAN PLATELET VOLUME 8.6 fL (7.4-11.4); MONOCYTES # (AUTO) 0.8 10^3/uL (0.0-1.0); MONOCYTES % (AUTO) 6.1 %; NEUTROPHILS # (AUTO) 9.5 10^3/uL (1.5-6.6); NEUTROPHILS % (AUTO) 75.3 %; PLT - PLATELET COUNT 261 10^3/uL (130-450); RED CELL DISTRIBUTION WIDTH 12.4 % (12.0-15.0); WHITE BLOOD COUNT 12.7 x10^3/uL (4.8-10.8)
[2022-08-11 12:48] LABS: ALBUMIN 4.6 g/dL (3.2-5.5); ALBUMIN/GLOBULIN RATIO 1.5 (1.0-2.2); BILIRUBIN,TOTAL 0.8 mg/dL (0.2-1.0); CALCIUM 9.4 mg/dL (8.5-10.3); CREATININE 0.8 mg/dL (0.6-1.2); POTASSIUM 3.7 mmol/L (3.5-5.0); TOTAL PROTEIN 7.6 g/dL (6.7-8.2)
[2022-08-11 12:54] LABS: GLUCOSE, URINE (UA) NEGATIVE (NEGATIVE); KETONES,URINE (UA) >=80 mg/dL (NEGATIVE); LEUKOCYTE ESTERASE, URINE NEGATIVE (NEGATIVE); NITRITE,URINE NEGATIVE (NEGATIVE); OCCULT BLOOD,URINE LARGE (NEGATIVE); PROTEIN,URINE 100 mg/dL (NEGATIVE); UROBILINOGEN,URINE 0.2 (NORMAL) E.U./dL (NORMAL)
[2022-08-11 13:01] LABS: BILIRUBIN,URINE NEGATIVE (NEGATIVE); CLARITY,URINE BLOODY (CLEAR); ICTOTEST,URINE NEGATIVE; RBC,URINE TNTC /HPF (0-5); SQUAMOUS EPITHELIAL CELL,UR RARE Squamous (<= Few)
[2022-08-11 13:02] LABS: BACTERIA,URINE Moderate /HPF (None Seen); MUCUS,URINE Few Strands
[2022-08-11] MEDS ORDERED: SODIUM CHLORIDE 0.9% 1,000 ML IV STA (13:02)
--- NOTE | 2022-08-11 13:02 | ED Physician Documentation ---
History of Present Illness - Stated complaint Stated Complaint: BLOOD IN URIN,POST SURG - Chief complaint Chief Complaint: Abd Pain - Additonal information Additional information: History obtained from patient. 27-year-old male comes to the emergency department for evaluation of hematuria and some mild dysuria. He was initially seen in this emergency department on 08/07/2022. At that time he had 3 days of lower abdominal pain. Initial CT was suggestive of early early appendicitis. The patient returned to the emergency department on the next morning and subsequently underwent laparoscopic appendectomy with Dr. Casiano. Reportedly he was catheterized during the procedure but the catheter was removed postprocedure. The patient reports that since discharge he has continued to have some mild hematuria as well as darker urines. Subjective chills but no objective fevers. No nausea or vomiting. He has a generally tender lower abdomen. Denies any history of UTI. No history of renal colic. Review of Systems Constitutional: reports: Chills, Myalgias Eyes: reports: Reviewed and negative Cardiac: reports: Reviewed and negative Respiratory: reports: Reviewed and negative GI: reports: Abdominal Pain. denies: Nausea, Vomiting : reports: Dysuria, Hematuria Skin: reports: Other Musculoskeletal: reports: Reviewed and negative PD PAST MEDICAL HISTORY - Past Medical History Cardiovascular: Other Respiratory: None Neuro: None Endocrine/Autoimmune: None GI: None HEENT: None Psych: Depression - Past Surgical History Past Surgical History: No HEENT: Myringotomy (tubes), Tonsil/Adenoidectomy - Present Medications Home Medications: Ambulatory Orders Medication Instructions Recorded Confirmed Propranolol [Inderal] 20 mg PO TID 08/07/22 08/07/22 buPROPion [Wellbutrin Xl] 150 mg PO DAILY 08/07/22 08/07/22 HYDROcod/ACETAM 5/325 [[place] 5/325] 1 tab PO Q4H PRN #11 tablet 08/08/22 polyethylene glycoL 3350 [Miralax] 17 gm PO DAILY #238 gm 08/08/22 Cefpodoxime Proxetil [Vantin] 100 mg PO Q12H #14 tablet 08/11/22 - Allergies Allergies/Adverse Reactions: Allergies Allergy/AdvReac Type Severity Reaction Status Date / Time No Known Drug Allergies Allergy Verified 08/11/22 12:20 - Social History Does the pt smoke?: No Smoking Status: Never smoker Does the pt drink ETOH?: No Does the pt have substance abuse?: No - Immunizations Immunizations are current?: Yes - POLST Patient has POLST: No PD ED PE NORMAL - General General: Alert and oriented X 3, No acute distress - HEENT HEENT: PERRL - Neck Neck: Supple, no meningeal sign, No adenopathy - Cardiac Cardiac: RRR, No murmur - Respiratory Respiratory: No respiratory distress, Clear bilaterally - Abdomen Abdomen: Normal bowel sounds, Soft, Non tender (Mild tenderness predominantly on the left lower quadrant. [address] in place with Dermabond. No surrounding erythema. Mild ecchymosis surrounding left lower quadrant incision.) - Back Back: No CVA TTP, No spinal TTP - Derm Derm: Normal color, Warm and dry - Extremities Extremities: No deformity, No tenderness to palpate, Normal ROM s pain - Neuro Neuro: Alert and oriented X 3, color straining bag washer 2-12 intact Eye Opening: Spontaneous Motor: Obeys Commands Verbal: Oriented GCS Score: 15 Results - Vitals Vitals: Vital Signs - 24 hr 08/11/22 12:18 Temperature 36.9 C Heart Rate 85 Respiratory 14 Rate Blood Pressure 153/52 H O2 Saturation 100 Oxygen O2 Source Room air - Labs Labs: Laboratory Tests 08/11/22 08/11/22 08/11/22 12:27 12:30 12:30 WBC 12.7 H RBC 5.00 Hgb 15.1 Hct 45.9 MCV 91.8 MCH 30.2 MCHC 32.9 RDW 12.4 Plt Count 261 MPV 8.6 Neut # (Auto) 9.5 H Lymph # (Auto) 2.0 [place] # (Auto) 0.8 Eos # (Auto) 0.3 Baso # (Auto) 0.0 Absolute Nucleated RBC 0.00 Nucleated RBC % 0.0 Sodium 138 Potassium 3.7 Chloride 100 L Carbon Dioxide 26 Anion Gap 12.0 BUN 12 Creatinine 0.8 Estimated GFR (MDRD) 114 Glucose 105 H Calcium 9.4 Total Bilirubin 0.8 AST 17 ALT 17 Alkaline Phosphatase 52 Total Protein 7.6 Albumin 4.6 Globulin 3.0 Albumin/Globulin Ratio 1.5 Lipase 29 Urine Color RED/BLOODY Urine Clarity BLOODY Urine pH 6.0 Ur Specific [place] >=1.030 H Urine Protein 100 H Urine Glucose (UA) NEGATIVE Urine Ketones >=80 H Urine Occult Blood LARGE H Urine Nitrite NEGATIVE Urine Bilirubin NEGATIVE Urine Urobilinogen 0.2 (NORMAL) Ur Leukocyte Esterase NEGATIVE Urine RBC TNTC H Urine WBC 4-5 Ur Squamous Epith Cells RARE Squamous Urine Bacteria Moderate H Urine Mucus Few Strands Ur Microscopic Review INDICATED Urine Culture Comments NOT INDICATED - Rads (name of study) abd Radiology: Final report received (Postsurgical changes from recent appendectomy. Tiny pockets of free air in the nondependent portion of upper abdomen. Small amount of hyperdense fluid in lower abdomen and pelvis concerning for hemoperitoneum. No areas of abnormal bowel wall thickening. No abscess collection. ) PD MEDICAL DECISION MAKING - ED course Complexity details: reviewed results, re-evaluated patient, considered differential, d/w patient, d/w animal nutrition consultant ([place]) ED course: 27-year-old male presents emergency department for evaluation of hematuria on postop day #3. He underwent a laparoscopic appendectomy on 08/08/[address] Casiano. He was catheterized during the procedure and patient reports that he has had some persistent waxing and waning hematuria since. He does have some mild dysuria but no incomplete bladder emptying or fevers. Here in the emergency department I did obtain a CBC and electrolytes. He does have a mild leukocytosis of 12.7 thousand. Otherwise no worrisome anemia. His electrolytes were without acute worrisome derangement. His urinalysis does show a large amount of felipe blood in the urine with moderate bacteria which I would consider unusual for male patient. I suspect he has a mild cystitis given the recent catheterization for the procedure. However given surgery we will proceed with a CT of the abdomen and pelvis to ensure that there was no findings to suggest bladder wall or ureter injury during the procedure. 1400: CT of the abdomen is completed. There is findings to suggest a small amount of free air in the nondependent areas of the upper abdomen. This is consistent with insufflation and the laparoscopic procedure. The CT scan also reads for a small amount of fluid in the lower pelvis consistent with hemoperitoneum. But there was nothing to suggest bladder wall injury or bowel injury or ureter injury. There is no hydronephrosis or obvious stones. I did briefly discussed this case with on-call surgeon Dr. Jaquez who will personally evaluate the CT results but given the history, the laparoscopic approach as well as a CT results he feels the patient can be discharged home with a prescription of antibiotics for treatment of a urinary tract infection he is to follow closely with Dr. Casiano next week and surgery. I will start the patient on Vantin twice daily until he sees Dr. Casiano as well as discussed emergent worrisome return precautions Departure - Departure Disposition: 01 Home, Self Care Clinical Impression: Acute cystitis with hematuria, Status post appendectomy, Lower abdominal pain Condition: Stable Record reviewed to determine appropriate education?: Yes Instructions: ED Infec Bladder Cystitis Male Follow-Up: Laura Sharp MD [Provider Admit Priv/Credential] - Prescriptions: Cefpodoxime Proxetil [Vantin] 100 mg PO Q12H #14 tablet Comments: Berhane you are seen today in the emergency department because you have had some discomfort when you urinate as well as you have noticed some dark and blood tinged urine. You underwent an appendectomy on 08 August. You did have a Clay catheter placed during the procedure. Your urine today shows a moderate amount of bacteria which is unusual for a male and I suspect that you have an acute bladder infection simply due to the catheterization. I would like you to fill the prescription for the Vantin at [facility] begin taking twice daily for the next week. We did do a CT of your abdomen today and we do not have any findings to suggest concern with nicking the bladder or the ureter during the procedure. However if you find over the next few days you are having any worsening lower abdominal pain, any fevers, you have worsening hematuria despite the antibiotics you should return immediately to the ER for a second evaluation. Please continue to follow-up as already scheduled postoperatively with Dr. Way and Shayy Arias.
[2022-08-11] MEDS ORDERED: cefTRIAXone 1 GM VIAL IVP STA (13:13)
[2022-08-11] MEDS ORDERED: iohexoL-300 100 ML VIAL ONE (13:17)
--- NOTE | 2022-08-11 13:59 | CT Report ---
PROCEDURE: ABDOMEN/PELVIS W INDICATIONS: hematuria; recent appendectomy and russell CONTRAST: 100ml omni 300 TECHNIQUE: After the administration of IV contrast, 5 mm thick sections acquired from the diaphragms to the symp hysis. 5 mm thick coronal and sagittal reformats were acquired. For radiation dose reduction, the f ollowing was used: automated exposure control, adjustment of mA and/or kV according to patient size. COMPARISON: 08/07/2022. FINDINGS: Image quality: Excellent. ABDOMEN: Lung bases: Lung bases are clear. Heart size is normal. Solid organs: Liver and spleen are normal in size and enhancement. Gallbladder is within normal escalante its. Biliary system is non dilated. Pancreas enhances normally. No adrenal nodules. Kidneys demon strate normal size and enhancement, without hydronephrosis. Peritoneum and bowel: Patient is status post interval appendectomy with postsurgical changes seen in right lower quadrant abdomen. No gross bowel wall thickening or mesenteric fat stranding. No abscess collection. A few tiny foci of peritoneal free air are seen anterior to right hepatic lobe most consi stent with iatrogenic air related to surgery. Small to moderate amount of hyperdense fluid is noted i n lower abdomen and pelvis extending to presacral space which may represent small amount of hemoperit oneum possibly related to surgery. Mild sigmoid diverticulosis is seen. No colonic wall thickening or mesenteric fat stranding. Nodes and vessels: No retroperitoneal or mesenteric adenopathy by size criteria. Aorta and inferior vena cava are normal in size. Miscellaneous: No ventral hernias. PELVIS: Genitourinary: Bladder wall thickness is normal. Miscellaneous: No inguinal hernias or adenopathy. Bones: No suspicious bony lesions. No vertebral body compression fractures. IMPRESSION: 1. Postsurgical changes from recent appendectomy. Tiny pockets of free air in nondependent portion of upper abdomen. Small amount of hyperdense fluid in lower abdomen and pelvis as above concerning for hemoperitoneum. 2. No area of abnormal bowel wall thickening. No abscess collection. Sigmoid diverticulosis without C T evidence of acute diverticulitis. 3. No renal stones or hydronephrosis. No lateral wall abnormality. Reviewed by: Javier Adan MD on 08/11/2022 1:58 PM PST Approved by: Javier Adan MD on 08/11/2022 1:58 PM PST Station ID: [id number]
[2022-08-11] MEDS ORDERED: iohexoL-300 100 ML VIAL IVP ONE (15:18)
== END 2022-08-11 14:45 | disposition home or self-care (01) ==
LOC: ED 12:10
DX: N30.01 Acute cystitis with hematuria (principal); R10.30 Lower abdominal pain, unspecified; Z98.890 Other specified postprocedural states
CPT/HCPCS: 36415; 74177; 80053; 81001; 83690; 85025; 96361; 96374; 99284; Q9967; 81003; 87086

== ENCOUNTER 2022-08-12 10:46 | Emergency (ER) | payer MEDICAID ==
[2022-08-12 11:37] LABS: BASOPHILS % (AUTO) 0.2 %; EOSINOPHILS # (AUTO) 0.3 10^3/uL (0.0-0.7); EOSINOPHILS % (AUTO) 2.5 %; HCT - HEMATOCRIT 42.1 % (42.0-52.0); LYMPHOCYTES # (AUTO) 1.9 10^3/uL (1.5-3.5); LYMPHOCYTES % (AUTO) 15.6 %; MEAN CORPUSCULAR HEMOGLOBIN 29.9 pg (27.0-31.0); MEAN CORPUSCULAR HGB CONC 33.3 g/dL (32.0-36.0); MEAN PLATELET VOLUME 8.8 fL (7.4-11.4); MONOCYTES # (AUTO) 0.7 10^3/uL (0.0-1.0); MONOCYTES % (AUTO) 5.2 %; NEUTROPHILS # (AUTO) 9.4 10^3/uL (1.5-6.6); NEUTROPHILS % (AUTO) 76.2 %; PLT - PLATELET COUNT 260 10^3/uL (130-450); RED BLOOD COUNT 4.68 10^6/uL (4.70-6.10); RED CELL DISTRIBUTION WIDTH 12.4 % (12.0-15.0); WHITE BLOOD COUNT 12.4 x10^3/uL (4.8-10.8)
[2022-08-12 11:50] LABS: ALBUMIN 4.3 g/dL (3.2-5.5); ALBUMIN/GLOBULIN RATIO 1.6 (1.0-2.2); BILIRUBIN,TOTAL 0.9 mg/dL (0.2-1.0); CALCIUM 9.1 mg/dL (8.5-10.3); CREATININE 0.7 mg/dL (0.6-1.2); POTASSIUM 3.9 mmol/L (3.5-5.0)
[2022-08-12 13:08] LABS: GLUCOSE, URINE (UA) NEGATIVE (NEGATIVE); KETONES,URINE (UA) >=80 mg/dL (NEGATIVE); LEUKOCYTE ESTERASE, URINE NEGATIVE (NEGATIVE); NITRITE,URINE NEGATIVE (NEGATIVE); OCCULT BLOOD,URINE LARGE (NEGATIVE); PROTEIN,URINE 30 mg/dL (NEGATIVE); UROBILINOGEN,URINE 0.2 (NORMAL) E.U./dL (NORMAL)
[2022-08-12 13:24] LABS: BILIRUBIN,URINE NEGATIVE (NEGATIVE); CLARITY,URINE CLOUDY (CLEAR); ICTOTEST,URINE NEGATIVE
[2022-08-12 13:25] LABS: BACTERIA,URINE None Seen /HPF (None Seen); RBC,URINE TNTC /HPF (0-5); SQUAMOUS EPITHELIAL CELL,UR NONE SEEN (<= Few)
--- NOTE | 2022-08-12 15:34 | ED Physician Documentation ---
PD HPI MALE - Stated complaint Stated Complaint: BLOOD IN URIN,COLD - Chief complaint Chief Complaint: Abd Pain - History obtained from History obtained from: Patient, Family - History of Present Illness Timing - onset: How many days ago (4) Timing - duration: Days (4) Timing - details: Gradual onset, Still present Associated symptoms: Hematuria PD HPI MALE CONTRIB FACTORS: Other (recent russell placed for surgery) Similar symptoms before: Has not had sx before Recently seen: Emergency Dept, Surgery - Additional information Additional information: Berhane Watson is a 27-year-old male who has had a recent appendectomy and following that he developed some hematuria. He was evaluated in the emergency department yesterday by Dr. Enriquez and found to have urinary tract infection with hematuria. He did have Russell catheter placed during the operation. He comes back into the emergency department today with continued hematuria and some questions. He brings in a picture of his urine drug and indicates that his urine has improved and curled color from a dark red to a light pink. He has other questions about free air in his abdomen as well. He is eating but states that he has some part that there is a bit of pain associated with after he eats. He has some pain between the the incisions. Review of Systems Constitutional: denies: Fever Eyes: denies: Decreased vision Ears: denies: Ear pain Nose: denies: Rhinorrhea / runny nose, Congestion Throat: denies: Sore throat Cardiac: denies: Chest pain / pressure, Palpitations Respiratory: denies: Dyspnea, Cough GI: reports: Abdominal Pain, Abdominal Swelling. denies: Nausea, Vomiting, Constipation, Diarrhea : reports: Hematuria. denies: Dysuria, Frequency Skin: denies: Rash Musculoskeletal: denies: Neck pain, Back pain, Extremity pain PD PAST MEDICAL HISTORY - Past Medical History Cardiovascular: Other Respiratory: None Neuro: None Endocrine/Autoimmune: None GI: None HEENT: None Psych: Depression - Past Surgical History Past Surgical History: No HEENT: Myringotomy (tubes), Tonsil/Adenoidectomy - Present Medications Home Medications: Ambulatory Orders Medication Instructions Recorded Confirmed Propranolol [Inderal] 20 mg PO TID 08/07/22 08/07/22 buPROPion [Wellbutrin Xl] 150 mg PO DAILY 08/07/22 08/07/22 HYDROcod/ACETAM 5/325 [[place] 5/325] 1 tab PO Q4H PRN #11 tablet 08/08/22 polyethylene glycoL 3350 [Miralax] 17 gm PO DAILY #238 gm 08/08/22 Cefdinir 300 mg PO BID #14 cap 08/11/22 - Allergies Allergies/Adverse Reactions: Allergies Allergy/AdvReac Type Severity Reaction Status Date / Time No Known Drug Allergies Allergy Verified 08/11/22 12:20 - Social History Does the pt smoke?: No Smoking Status: Never smoker Does the pt drink ETOH?: No Does the pt have substance abuse?: No - Immunizations Immunizations are current?: Yes - POLST Patient has POLST: No PD ED PE NORMAL - Vitals Vital signs reviewed: Yes (hypertensive mild ) - General General: Alert and oriented X 3, No acute distress, Well developed/nourished - HEENT HEENT: Atraumatic, PERRL, EOMI - Neck Neck: Supple, no meningeal sign, No bony TTP - Respiratory Respiratory: No respiratory distress - Abdomen Abdomen: Normal bowel sounds, Soft, Other (There are 3 incisions to the abdominal wall that all appear without inflammation. There is mild tenderness to the area between the three punctures without garding or rebound. ) - Back Back: No CVA TTP, No spinal TTP - Derm Derm: Normal color, Warm and dry, No rash - Extremities Extremities: No deformity, No edema - Neuro Neuro: Alert and oriented X 3, balloon artist 2-12 intact, No motor deficit, No sensory deficit, Normal speech Eye Opening: Spontaneous Motor: Obeys Commands Verbal: Oriented GCS Score: 15 - Psych Psych: Normal mood, Normal affect Results - Vitals Vitals: Vital Signs - 24 hr 08/12/22 08/12/22 11:07 15:37 Temperature 37.2 C Heart Rate 86 69 Respiratory 18 20 Rate Blood Pressure 156/75 H 128/86 H O2 Saturation 99 98 Oxygen O2 Source Room air - Labs Labs: Laboratory Tests 08/12/22 08/12/22 08/12/22 11:30 11:30 11:58 WBC 12.4 H RBC 4.68 L Hgb 14.0 Hct 42.1 MCV 90.0 MCH 29.9 MCHC 33.3 RDW 12.4 Plt Count 260 MPV 8.8 Neut # (Auto) 9.4 H Lymph # (Auto) 1.9 [place] # (Auto) 0.7 Eos # (Auto) 0.3 Baso # (Auto) 0.0 Absolute Nucleated RBC 0.00 Nucleated RBC % 0.0 Sodium 137 Potassium 3.9 Chloride 103 Carbon Dioxide 26 Anion Gap 8.0 BUN 15 Creatinine 0.7 Estimated GFR (MDRD) 133 Glucose 96 Calcium 9.1 Total Bilirubin 0.9 AST 15 ALT 15 Alkaline Phosphatase 45 Total Protein 7.0 Albumin 4.3 Globulin 2.7 Albumin/Globulin Ratio 1.6 Lipase 29 Urine Color YELLOW Urine Clarity CLOUDY Urine pH 6.0 Ur Specific [place] >=1.030 H Urine Protein 30 H Urine Glucose (UA) NEGATIVE Urine Ketones >=80 H Urine Occult Blood LARGE H Urine Nitrite NEGATIVE Urine Bilirubin NEGATIVE Urine Urobilinogen 0.2 (NORMAL) Ur Leukocyte Esterase NEGATIVE Urine RBC TNTC H Urine WBC 4-5 Ur Squamous Epith Cells NONE SEEN Urine Bacteria None Seen Ur Microscopic Review INDICATED Urine Culture Comments NOT INDICATED PD MEDICAL DECISION MAKING - ED course Complexity details: reviewed old records, reviewed results, re-evaluated patient, considered differential, d/w patient, d/w family ED course: 27-year-old male with recent appendectomy has developed hematuria that appears to be related to urinary tract infection after Russell catheter placement. The patient has no bacteria in the urine today on microscopic exam different from yesterday. I encouraged the patient to increase his fluid intake to essentially rinse his bladder and to continue his antibiotic. I did answer his questions about the free air in his abdomen related to the insufflation from the procedure. I indicated to the patient that we did not mention this to him because this is a normal finding postoperatively. The patient appeared satisfied with the explanations and comfortable with the course. He will drink additional fluids to rinse his bladder and continue his antibiotic Departure - Departure Disposition: 01 Home, Self Care Clinical Impression: Acute cystitis with hematuria Condition: Stable Instructions: ED UTI Cystitis Male Follow-Up: Shayy Shepherd PA [Provider Admit Priv/Credential] - Comments: Berhane today looks like you continue to have blood in the urine and there is evidence that the infection that was present yesterday appears to be under control today. There are no bacteria in the urine today. Our expectation is the bleeding into the bladder will improve over the next day and the recommendation is to drink extra fluids to rinse the bladder. Discharge Date/Time: 08/12/22 16:08
[2022-08-12 15:38] VITALS: BP 128/86
== END 2022-08-12 16:08 | disposition home or self-care (01) ==
LOC: ED 10:46
DX: N30.01 Acute cystitis with hematuria (principal); Z90.49 Acquired absence of other specified parts of digestive tract
CPT/HCPCS: 36415; 80053; 81001; 81003; 83690; 85025; 87086; 99282; 99283

== ENCOUNTER 2022-11-21 14:13 | Outpatient (CLI) | payer MEDICAID ==
--- NOTE | 2022-11-21 16:04 | Ultrasound Report ---
PROCEDURE: Pelvic Limited or F/U INDICATIONS: LEFT GROIN MASS TECHNIQUE: Real-time transabdominal scanning was performed of the pelvic organs, with image documentation. COMPARISON: None. FINDINGS: Multiple lymph nodes are visualized within the left groin. One node demonstrates a thickened cortex m easuring up to 5 mm in diameter. The other visualized nodes demonstrate a normal fatty hilum and thin cortex. Other: No free pelvic fluid. IMPRESSION: Solitary left inguinal node with thickened cortex which may be reactive in nature. Consi candida interval follow-up to ensure resolution. If clinically indicated, this is amenable to percutaneou s biopsy. Reviewed by: Delisa Figueroa MD on 11/21/2022 4:03 PM PDT Approved by: Delisa Figueroa MD on 11/21/2022 4:03 PM PDT Station ID: [id number]
== END 2022-11-21 14:14 | disposition home or self-care (01) ==
LOC: DI 14:13
PROVIDERS: ATTEND Surgery
DX: R19.09 Other intra-abdominal and pelvic swelling, mass and lump (principal)

== ENCOUNTER 2022-11-29 14:00 | Outpatient (CLI) | payer MEDICAID ==
[2022-11-29 14:14] LABS: BASOPHILS % (AUTO) 0.2 %; EOSINOPHILS # (AUTO) 0.3 10^3/uL (0.0-0.7); EOSINOPHILS % (AUTO) 2.8 %; HCT - HEMATOCRIT 43.6 % (42.0-52.0); HGB - HEMOGLOBIN 14.7 g/dL (14.0-18.0); LYMPHOCYTES # (AUTO) 2.6 10^3/uL (1.5-3.5); LYMPHOCYTES % (AUTO) 21.1 %; MEAN CORPUSCULAR HEMOGLOBIN 30.2 pg (27.0-31.0); MEAN CORPUSCULAR HGB CONC 33.7 g/dL (32.0-36.0); MEAN CORPUSCULAR VOLUME 89.7 fL (80.0-94.0); MEAN PLATELET VOLUME 8.7 fL (7.4-11.4); MONOCYTES # (AUTO) 0.7 10^3/uL (0.0-1.0); MONOCYTES % (AUTO) 5.8 %; NEUTROPHILS # (AUTO) 8.5 10^3/uL (1.5-6.6); NEUTROPHILS % (AUTO) 69.9 %; PLT - PLATELET COUNT 252 10^3/uL (130-450); RED BLOOD COUNT 4.86 10^6/uL (4.70-6.10); RED CELL DISTRIBUTION WIDTH 12.4 % (12.0-15.0); WHITE BLOOD COUNT 12.2 x10^3/uL (4.8-10.8)
[2022-11-29 14:32] LABS: ALBUMIN 4.2 g/dL (3.2-5.5); ALBUMIN/GLOBULIN RATIO 1.4 (1.0-2.2); ALKALINE PHOSPHATASE 60 IU/L (42-121); ALT ALANINE AMINOTRANSFERASE 15 IU/L (10-60); AST ASPARTATE AMINOTRANSFERASE 17 IU/L (10-42); BILIRUBIN,TOTAL 0.6 mg/dL (0.2-1.0); BUN - BLOOD UREA NITROGEN 9 mg/dL (6-20); CARBON DIOXIDE - CO2 26 mmol/L (21-32); CHLORIDE 104 mmol/L (101-111); CHOL/HDL RATIO 4.7 (<5.0); CHOLESTEROL 199 mg/dL; CREATININE 0.6 mg/dL (0.6-1.2); GFR - MDRD 159 (>89); GLUCOSE 92 mg/dL (70-100); HDL CHOLESTEROL 42 mg/dL; LDL CHOLESTEROL,CALCULATED 141 mg/dL; LDL/HDL RATIO 3.4 (<3.6); POTASSIUM 3.7 mmol/L (3.5-5.0); SODIUM 138 mmol/L (135-145); TOTAL PROTEIN 7.2 g/dL (6.7-8.2); TRIGLYCERIDES 82 mg/dL; VLDL CHOLESTEROL 16 mg/dL
[2022-11-29 14:43] LABS: THYROID STIMULATING HORMONE 0.73 uIU/mL (0.34-5.60)
== END 2022-11-29 14:01 | disposition home or self-care (01) ==
LOC: LAB 14:00
PROVIDERS: ATTEND Physician Assistant
DX: Z13.9 Encounter for screening, unspecified (principal); Z13.220 Encounter for screening for lipoid disorders; Z13.29 Encounter for screening for other suspected endocrine disorder
CPT/HCPCS: 36415; 80053; 80061; 83721; 84443; 85025

== ENCOUNTER 2022-12-27 13:24 | Outpatient (CLI) | payer MEDICAID ==
[2022-12-27 19:44] LABS: BASOPHILS % (AUTO) 0.3 %; EOSINOPHILS # (AUTO) 0.3 10^3/uL (0.0-0.7); EOSINOPHILS % (AUTO) 2.7 %; HCT - HEMATOCRIT 49.5 % (42.0-52.0); LYMPHOCYTES # (AUTO) 2.3 10^3/uL (1.5-3.5); LYMPHOCYTES % (AUTO) 23.8 %; MEAN CORPUSCULAR HEMOGLOBIN 29.9 pg (27.0-31.0); MEAN CORPUSCULAR HGB CONC 32.3 g/dL (32.0-36.0); MEAN CORPUSCULAR VOLUME 92.5 fL (80.0-94.0); MEAN PLATELET VOLUME 9.2 fL (7.4-11.4); MONOCYTES # (AUTO) 0.7 10^3/uL (0.0-1.0); MONOCYTES % (AUTO) 6.8 %; NEUTROPHILS # (AUTO) 6.4 10^3/uL (1.5-6.6); NEUTROPHILS % (AUTO) 66.2 %; PLT - PLATELET COUNT 332 10^3/uL (130-450); RED BLOOD COUNT 5.35 10^6/uL (4.70-6.10); RED CELL DISTRIBUTION WIDTH 12.4 % (12.0-15.0); WHITE BLOOD COUNT 9.7 x10^3/uL (4.8-10.8)
[2022-12-27 19:57] LABS: BILIRUBIN,URINE NEGATIVE (NEGATIVE); GLUCOSE, URINE (UA) NEGATIVE (NEGATIVE); KETONES,URINE (UA) NEGATIVE (NEGATIVE); LEUKOCYTE ESTERASE, URINE NEGATIVE (NEGATIVE); NITRITE,URINE NEGATIVE (NEGATIVE); OCCULT BLOOD,URINE NEGATIVE (NEGATIVE); PROTEIN,URINE NEGATIVE (NEGATIVE); UROBILINOGEN,URINE 0.2 (NORMAL) E.U./dL (NORMAL)
[2022-12-27 20:01] LABS: CLARITY,URINE CLEAR (CLEAR)
[2022-12-27 20:05] LABS: % IRON SATURATION 40 % (20-50); IRON 178 ug/dL (45-182); TOTAL IRON BINDING CAPACITY 447 ug/dL (250-450); TRANSFERRIN 319 mg/dL (180-329)
[2022-12-27 20:11] LABS: CRP - C-REACTIVE PROTEIN < 1.0 mg/dL (0-1.0)
[2022-12-27 20:17] LABS: BACTERIA,URINE None Seen /HPF (None Seen); RBC,URINE 0-5 /HPF (0-5); SQUAMOUS EPITHELIAL CELL,UR NONE SEEN (<= Few); WBC,URINE 0-3 /HPF (0-3)
[2022-12-27 20:26] LABS: FOLATE 15.57 ng/mL (5.90 - >24.8)
== END 2022-12-27 13:25 | disposition home or self-care (01) ==
LOC: LAB.S 13:24
PROVIDERS: ATTEND Nurse Practitioner
DX: R19.09 Other intra-abdominal and pelvic swelling, mass and lump (principal); N39.9 Disorder of urinary system, unspecified; D72.829 Elevated white blood cell count, unspecified
CPT/HCPCS: 36415; 81001; 82728; 82746; 83540; 84153; 84466; 85025; 85651; 86140; 87086

== ENCOUNTER 2023-03-01 09:31 | Outpatient (CLI) | payer MEDICAID ==
[2023-03-01 09:49] LABS: BILIRUBIN,URINE NEGATIVE (NEGATIVE); GLUCOSE, URINE (UA) NEGATIVE (NEGATIVE); KETONES,URINE (UA) NEGATIVE (NEGATIVE); LEUKOCYTE ESTERASE, URINE NEGATIVE (NEGATIVE); NITRITE,URINE NEGATIVE (NEGATIVE); OCCULT BLOOD,URINE NEGATIVE (NEGATIVE); PROTEIN,URINE NEGATIVE (NEGATIVE); UROBILINOGEN,URINE 0.2 (NORMAL) E.U./dL (NORMAL)
[2023-03-01 09:51] LABS: CLARITY,URINE SL. CLOUDY (CLEAR)
[2023-03-01 10:09] LABS: AMORPHOUS SEDIMENT,UR Marked /LPF; BACTERIA,URINE Few /HPF (None Seen); RBC,URINE None Seen /HPF (0-5); SQUAMOUS EPITHELIAL CELL,UR RARE Squamous (<= Few); WBC,URINE 0-3 /HPF (0-3)
[2023-03-02 16:08] LABS: FREE TESTOSTERONE(DIRECT) 19.4 pg/mL (9.3-26.5)
== END 2023-03-01 09:32 | disposition home or self-care (01) ==
LOC: LAB 09:31
PROVIDERS: ATTEND Urology
DX: R32 Unspecified urinary incontinence (principal); N52.9 Male erectile dysfunction, unspecified
CPT/HCPCS: 36415; 81001; 84402; 84403; 87086

== ENCOUNTER 2023-03-01 09:44 | Outpatient (CLI) | payer MEDICAID | END 2023-03-01 09:45 | disposition home or self-care (01) | LOC: LAB 09:44 | PROVIDERS: ATTEND Urology | DX: Z53.9 Procedure and treatment not carried out, unspecified reason (principal) | CPT/HCPCS: 81001; 87086 ==

== ENCOUNTER 2023-04-19 12:00 | Emergency (ER) | payer MEDICAID ==
[2023-04-19] MEDS ORDERED: KETOROLAC 30 MG/ML VIAL IVP STA (12:21)
[2023-04-19] MEDS ORDERED: ONDANSETRON 4 MG/2 ML VIAL IVP STA (12:22)
[2023-04-19] MEDS ORDERED: SODIUM CHLORIDE 0.9% 1,000 ML IV STA ×2 (12:22→15:57)
[2023-04-19 12:26] LABS: BASOPHILS % (AUTO) 0.2 %; EOSINOPHILS # (AUTO) 0.2 10^3/uL (0.0-0.7); EOSINOPHILS % (AUTO) 1.2 %; HCT - HEMATOCRIT 45.1 % (42.0-52.0); HGB - HEMOGLOBIN 15.2 g/dL (14.0-18.0); LYMPHOCYTES # (AUTO) 1.9 10^3/uL (1.5-3.5); LYMPHOCYTES % (AUTO) 15.4 %; MEAN CORPUSCULAR HEMOGLOBIN 30.4 pg (27.0-31.0); MEAN CORPUSCULAR HGB CONC 33.7 g/dL (32.0-36.0); MEAN CORPUSCULAR VOLUME 90.2 fL (80.0-94.0); MEAN PLATELET VOLUME 8.6 fL (7.4-11.4); MONOCYTES # (AUTO) 1.1 10^3/uL (0.0-1.0); MONOCYTES % (AUTO) 9.4 %; NEUTROPHILS # (AUTO) 8.9 10^3/uL (1.5-6.6); NEUTROPHILS % (AUTO) 73.6 %; PLT - PLATELET COUNT 236 10^3/uL (130-450); RED CELL DISTRIBUTION WIDTH 12.3 % (12.0-15.0)
[2023-04-19 12:45] LABS: ALBUMIN 4.6 g/dL (3.2-5.5); ALBUMIN/GLOBULIN RATIO 1.6 (1.0-2.2); BILIRUBIN,TOTAL 0.6 mg/dL (0.2-1.0); CALCIUM 9.5 mg/dL (8.5-10.3); CREATININE 0.8 mg/dL (0.6-1.3); POTASSIUM 3.6 mmol/L (3.5-4.5); TOTAL PROTEIN 7.4 g/dL (6.4-8.9)
--- NOTE | 2023-04-19 13:11 | ED Physician Documentation ---
PD HPI ABD PAIN - Stated complaint Stated Complaint: ABD PX, N/V/D - Chief complaint Chief Complaint: Abd Pain - History obtained from History obtained from: Patient - Additional information Additional information: Patient is a 27-year-old male with a history of prior appendectomy presenting for evaluation of periumbilical pain has been present since last night as he was straining to have a bowel movement. Patient reports having a history of a small umbilical hernia that has been followed by Dr. Sevilla and current plan is for no surgery at it is very small. However he reports developing pain in the mid abdomen since yesterday with difficulty with bowel movements. He did have a loose stool 30 minutes ago. No nausea or vomiting. He did work overnight and reports his last oral intake was around 2:00 and reports that his pain did slightly worsened since then after eating. No fevers. No dysuria or hematuria. No testicular pain. Review of Systems Constitutional: denies: Fever Cardiac: denies: Chest pain / pressure Respiratory: denies: Dyspnea GI: reports: Abdominal Pain, Constipation. denies: Vomiting, Bloody / black stool : denies: Dysuria, Hematuria Neurologic: denies: Headache PD PAST MEDICAL HISTORY - Past Medical History Cardiovascular: Other Respiratory: None Neuro: None Endocrine/Autoimmune: None GI: None HEENT: None Psych: Depression - Past Surgical History Past Surgical History: No HEENT: Myringotomy (tubes), Tonsil/Adenoidectomy - Present Medications Home Medications: Ambulatory Orders Medication Instructions Recorded Confirmed Propranolol [Inderal] 20 mg PO TID 08/07/22 08/07/22 buPROPion [Wellbutrin Xl] 150 mg PO DAILY 08/07/22 08/07/22 HYDROcod/ACETAM 5/325 [[place] 5/325] 1 tab PO Q4H PRN #11 tablet 08/08/22 polyethylene glycoL 3350(BULK) 17 gm PO DAILY #238 gm 08/08/22 [Miralax] Cefdinir 300 mg PO BID #14 cap 08/11/22 - Allergies Allergies/Adverse Reactions: Allergies Allergy/AdvReac Type Severity Reaction Status Date / Time No Known Drug Allergies Allergy Verified 04/19/23 12:07 - Social History Does the pt smoke?: No Smoking Status: Never smoker Does the pt drink ETOH?: No Does the pt have substance abuse?: No - Immunizations Immunizations are current?: Yes - POLST Patient has POLST: No PD ED PE NORMAL - General General: Alert and oriented X 3, No acute distress, Well developed/nourished - HEENT HEENT: Atraumatic - Neck Neck: Supple, no meningeal sign - Cardiac Cardiac: RRR, No murmur - Respiratory Respiratory: No respiratory distress, Clear bilaterally - Abdomen Abdomen: Normal bowel sounds, Soft, Non distended, Other (Periumbilical tenderness, no palpable masses, no visible hernia.) - Derm Derm: Warm and dry - Neuro Neuro: Normal speech Results - Vitals Vitals: Vital Signs - 24 hr 04/19/23 04/19/23 12:07 14:09 Temperature 36.5 C Heart Rate 88 81 Respiratory 16 21 Rate Blood Pressure 138/80 H 122/78 O2 Saturation 98 100 Oxygen O2 Source Room air - Labs Labs: Laboratory Tests 04/19/23 04/19/23 04/19/23 12:19 12:19 13:03 WBC 12.0 H RBC 5.00 Hgb 15.2 Hct 45.1 MCV 90.2 MCH 30.4 MCHC 33.7 RDW 12.3 Plt Count 236 MPV 8.6 Neut # (Auto) 8.9 H Lymph # (Auto) 1.9 [place] # (Auto) 1.1 H Eos # (Auto) 0.2 Baso # (Auto) 0.0 Absolute Nucleated RBC 0.00 Nucleated RBC % 0.0 Sodium 139 Potassium 3.6 Chloride 104 Carbon Dioxide 29 Anion Gap 6.0 BUN 15 Creatinine 0.8 Estimated GFR (MDRD) 114 Glucose 96 Calcium 9.5 Total Bilirubin 0.6 AST 16 ALT 16 Alkaline Phosphatase 61 Total Protein 7.4 Albumin 4.6 Globulin 2.8 Albumin/Globulin Ratio 1.6 Lipase 8 L Urine Color DARK YELLOW Urine Clarity CLEAR Urine pH 5.5 Ur Specific [place] >=1.030 H Urine Protein NEGATIVE Urine Glucose (UA) NEGATIVE Urine Ketones 15 H Urine Occult Blood TRACE-INTA Urine Nitrite NEGATIVE Urine Bilirubin NEGATIVE Urine Urobilinogen 0.2 (NORMAL) Ur Leukocyte Esterase NEGATIVE Ur Microscopic Review NOT INDICATED Urine Culture Comments NOT INDICATED PD Medical Decision Making - ED course Complexity details: reviewed results, re-evaluated patient, d/w patient ED course: Patient is a 27-year-old male presenting for evaluation of periumbilical abdominal pain. He does have tenderness noted on exam. No palpable hernia. Vital signs are stable. He declines need for narcotic pain medications. CBC, chemistries and urinalysis were obtained and reviewed. Mild leukocytosis. CT of the abdomen pelvis was obtained and radiology read is pending at time of shift change. Patient signed out to oncoming provider at shift change. 1450 - Patient feeling better after Toradol and IV fluids.Patient aware that CT read is pending. He is requesting a nicotine patch which I have ordered. Departure - Departure Forms: PCP List
[2023-04-19 13:14] LABS: GLUCOSE, URINE (UA) NEGATIVE (NEGATIVE); KETONES,URINE (UA) 15 mg/dL (NEGATIVE); LEUKOCYTE ESTERASE, URINE NEGATIVE (NEGATIVE); NITRITE,URINE NEGATIVE (NEGATIVE); OCCULT BLOOD,URINE TRACE-INTA (NEGATIVE); PH,URINE 5.5 PH (5.0-7.5); PROTEIN,URINE NEGATIVE (NEGATIVE); UROBILINOGEN,URINE 0.2 (NORMAL) E.U./dL (NORMAL)
[2023-04-19 13:17] LABS: CLARITY,URINE CLEAR (CLEAR)
[2023-04-19 13:19] LABS: BILIRUBIN,URINE NEGATIVE (NEGATIVE); ICTOTEST,URINE NEGATIVE
[2023-04-19] MEDS ORDERED: NICOTINE 14 MG PATCH TOP STA (14:51)
[2023-04-19] MEDS ORDERED: iohexoL-300 100 ML VIAL IVP ONE (15:34)
--- NOTE | 2023-04-19 15:47 | CT Report ---
PROCEDURE: ABDOMEN/PELVIS W INDICATIONS: periumbilical pain; constipation CONTRAST: 100mL Omni 300 TECHNIQUE: After the administration of intravenous contrast, 5 mm thick sections acquired from the diaphragms to the symphysis. 5 mm thick coronal and sagittal reformats were acquired. For radiation dose reducti on, the following was used: automated exposure control, adjustment of mA and/or kV according to yue ent size. COMPARISON: CT 07/12/2022 FINDINGS: Image quality: Excellent. Lung bases and heart: Unremarkable. Liver: No solid mass. Gallbladder and biliary tree: No radiopaque stones or wall thickening. No biliary dilation. Spleen: No splenomegaly. Pancreas: No pancreatic ductal dilation. Adrenals: No adrenal nodule. Kidneys and ureters: No hydronephrosis. No renal cystic lesion which requires follow up. No solid mas s. Bowel and peritoneum: No bowel distension. No pathologic free fluid. Appendectomy. Colonic diverticul osis without evidence of diverticulitis. Lymph nodes: No central or retroperitoneal adenopathy. Vessels: No infrarenal aortic aneurysm. PELVIS Reproductive organs: Unremarkable. Bladder: No abnormal wall thickening, accounting for underdistension. Pelvic lymph nodes: No pelvic adenopathy by size criteria. Bones: No aggressive osseous abnormality. Other: Small umbilical hernia containing fat. IMPRESSION: No findings to explain the patient's periumbilical pain. Normal gallbladder. Appendectomy. Colonic di verticulosis without evidence of diverticulitis. Reviewed by: Channing Cortes on 04/19/2023 3:46 PM PDT Approved by: Channing Cortes on 04/19/2023 3:46 PM PDT Station ID: [id number]
--- NOTE | 2023-04-19 15:57 | ED Physician Documentation ---
ED Addendum - Addendum Addendum: 04/19/23 15:57 Signed out to me by Dr. Wellington at shift change pending reevaluation and CT scan. CT showing diverticulosis and a small umbilical hernia sac containing only fat. On examination at this time he is nontender and feeling better. He did request a second liter of IV fluids which was given. He declined need for a work note or prescription medications. He was given close return precautions, but given the pain of a days duration associate with diarrhea suspect he has a viral enteritis. Disposition: Discharged home Condition: Stable Diagnosis: 1. Abdominal pain 2. Diarrhea
[2023-04-19 16:10] VITALS: BP 140/87; O2SAT 99
== END 2023-04-19 16:31 | disposition home or self-care (01) ==
LOC: ED 12:00
DX: R10.9 Unspecified abdominal pain (principal); R19.7 Diarrhea, unspecified; K57.30 Diverticulosis of large intestine without perforation or abscess without bleeding; K42.9 Umbilical hernia without obstruction or gangrene
CPT/HCPCS: 36415; 74177; 80053; 81003; 83690; 85025; 96374; 99284; A9270; Q9967; 81001; 87086

== ENCOUNTER 2023-06-04 14:56 | Emergency (ER) | payer MEDICAID ==
--- NOTE | 2023-06-04 15:20 | ED Physician Documentation ---
History of Present Illness - Stated complaint Stated Complaint: GLF/HEAD PX - Chief complaint Chief Complaint: Trauma Hd/Nk - Additonal information Additional information: 28-year-old male presents the emergency department for evaluation of an apparent syncopal episode and headache. Reports that on morning he was defecating on the toilet. He reports he had finished defecating when the next thing he remembers he woke up and he was on the ground. States he was very diaphoretic and had blood coming from an eyebrow neck. Since then he has been dizzy, lightheaded and has a mild headache. He is also had some vague chest pain. States he has a history of vasovagal syncope but this is different. He does have a history of depression and anxiety for which she takes Wellbutrin and propanolol. He was recently treated with Augmentin for a dental infection which she states also made him diaphoretic. On presentation to the emergency department he is alert well-appearing. No fever, tachycardia or hypotension. No focal neurodeficits. Review of Systems Constitutional: denies: Fever Eyes: reports: Photophobia. denies: Loss of vision Throat: reports: Reviewed and negative Cardiac: reports: Reviewed and negative Respiratory: reports: Reviewed and negative GI: reports: Nausea Skin: reports: Laceration (s) Neurologic: reports: Headache, Head injury PD PAST MEDICAL HISTORY - Past Medical History Cardiovascular: Other Respiratory: None Neuro: None Endocrine/Autoimmune: None GI: Diverticulitis HEENT: None Psych: Depression - Past Surgical History Past Surgical History: No General: Appendectomy HEENT: Myringotomy (tubes), Tonsil/Adenoidectomy - Present Medications Home Medications: Ambulatory Orders Medication Instructions Recorded Confirmed Propranolol [Inderal] 20 mg PO TID 08/07/22 06/04/23 buPROPion [Wellbutrin Xl] 150 mg PO DAILY 08/07/22 06/04/23 - Allergies Allergies/Adverse Reactions: Allergies Allergy/AdvReac Type Severity Reaction Status Date / Time No Known Drug Allergies Allergy Verified 04/19/23 12:07 - Social History Does the pt smoke?: No Smoking Status: Never smoker Does the pt drink ETOH?: No Does the pt have substance abuse?: Yes - Immunizations Immunizations are current?: Yes - POLST Patient has POLST: No PD ED PE NORMAL - General General: Alert and oriented X 3, No acute distress, Well developed/nourished, Other (Negative for raccoon eyes, tran sign or hemotympanums. 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 Relevant findings are: Rate: Rate (enter#) Rhythm: NSR [place]: Normal Intervals: Normal AR. No: Prolonged QT QRS: Normal Ischemia: Normal ST segments Compare to prior EKG: Old EKG unavailable Computer interpretation: Agree with computer - Labs Labs: Laboratory Tests 06/04/23 06/04/23 06/04/23 15:15 15:15 15:15 WBC 12.1 H RBC 5.28 Hgb 16.3 Hct 47.3 MCV 89.6 MCH 30.9 MCHC 34.5 RDW 12.2 Plt Count 299 MPV 8.7 Neut # (Auto) 8.5 H Lymph # (Auto) 2.6 [place] # (Auto) 0.7 Eos # (Auto) 0.2 Baso # (Auto) 0.0 Absolute Nucleated RBC 0.00 Nucleated RBC % 0.0 Sodium 140 Potassium 3.8 Chloride 102 Carbon Dioxide 31 Anion Gap 7.0 BUN 14 Creatinine 0.8 Estimated GFR (MDRD) 114 Glucose 84 Calcium 10.0 Total Bilirubin 0.6 AST 15 ALT 26 Alkaline Phosphatase 64 Troponin I High Sens < 2.3 L Total Protein 7.6 Albumin 4.8 Globulin 2.8 Albumin/Globulin Ratio 1.7 Lipase 17 - Rads (name of study) CT angio head/neck Relevant Findings:: Final report received (No intracranial aneurysm seen. No significant recurrent arterial abnormalities are seen. No hemodynamically significant stenosis seen within the arteries of the neck.) PD Medical Decision Making - ED course Complexity details: reviewed results, re-evaluated patient, d/w patient ED course: 28-year-old male presents emergency department for evaluation of headache, nausea feeling lightheaded and dizzy. He reports being on the toilet 4 days ago and at the end of defecation fainting falling forward striking his head. Reports he woke up quite diaphoretic. He had a superficial laceration above his eyebrow that is fully closed. Patient states he has had vasovagal syncope in the past but this felt different though with the description of defecation and diaphoresis I suspect he had a repeat vasovagal event. However the patient was concerned given the persistence of his headache. I did obtain CBC, electrolytes EKG which per my interpretation were all entirely normal. No ischemic findings on EKG. Negative troponin. Unremarkable CBC and electrolytes. His neurological exam was unremarkable. However there was concern for the possibility of a saccular aneurysm erupting causing the syncope and headache as such CT angios of the head and neck were obtained which showed no evidence of subarachnoid hemorrhage aneurysm bleed stenosis. His symptoms that persist may be due to a concussion. I discussed the findings with patient. I suspect he had vasovagal syncope but given that this is a recurrent event he should be ordered to have a Holter monitor. Advised very prompt follow-up with PCP. The usual emergent return precautions were discussed for worsening symptoms. Departure - Departure Disposition: 01 Home, Self Care Clinical Impression: Syncope and collapse Condition: Stable Record reviewed to determine appropriate education?: Yes Instructions: ED Fainting Unkn Cause Comments: Berhane you had a fainting episode while defecating the other day. Since then you have had a headache feel foggy, confused. You do report a history of vasovagal syncope and feel that this is different though based on your description of the events I suspect it is a return of the vasovagal syncope. However you did strike your head and is possibility that the headache and vague symptoms that persist are likely due to a concussion. In general stay well- hydrated, you can take Tylenol or ibuprofen for discomfort. Your CBC, electrolytes EKG today were all entirely normal. We did do an CT angiograms of your head and neck to evaluate for the possibility of aneurysm or bleeding within the brain that could have contributed to your symptoms and the angiograms were entirely normal. Would like you to discuss this ED visit with your primary care doctor. You should be referred for Holter monitor. Return to the emergency department if you develop worsening symptoms, sudden severe headache, uncontrolled vomiting, have facial droop, slurred speech or any other acute worrisome symptoms. Forms: PCP List
[2023-06-04 15:32] LABS: BASOPHILS % (AUTO) 0.2 %; EOSINOPHILS # (AUTO) 0.2 10^3/uL (0.0-0.7); EOSINOPHILS % (AUTO) 1.4 %; HCT - HEMATOCRIT 47.3 % (42.0-52.0); HGB - HEMOGLOBIN 16.3 g/dL (14.0-18.0); LYMPHOCYTES # (AUTO) 2.6 10^3/uL (1.5-3.5); LYMPHOCYTES % (AUTO) 21.6 %; MEAN CORPUSCULAR HEMOGLOBIN 30.9 pg (27.0-31.0); MEAN CORPUSCULAR HGB CONC 34.5 g/dL (32.0-36.0); MEAN CORPUSCULAR VOLUME 89.6 fL (80.0-94.0); MEAN PLATELET VOLUME 8.7 fL (7.4-11.4); MONOCYTES # (AUTO) 0.7 10^3/uL (0.0-1.0); MONOCYTES % (AUTO) 5.7 %; NEUTROPHILS # (AUTO) 8.5 10^3/uL (1.5-6.6); NEUTROPHILS % (AUTO) 70.9 %; PLT - PLATELET COUNT 299 10^3/uL (130-450); RED BLOOD COUNT 5.28 10^6/uL (4.70-6.10); RED CELL DISTRIBUTION WIDTH 12.2 % (12.0-15.0); WHITE BLOOD COUNT 12.1 x10^3/uL (4.8-10.8)
--- OUTSIDE RECORDS SUMMARY | 2023-06-04 15:42 | EXTERNAL MEDICAL SUMMARY RPT | Continuity of Care Document ---
Author Name Unknown Address [address] [place] [address] Phone Organization [facility] Address [address] [place] [address] Phone Care Team Providers Care Network Engineer Administrator Name Role Phone Unavailable Unavailable Unavailable Arthur Haynes Pa-C Unavailable Unavailable Bridgette, Provider Unavailable Unavailable Ana Tran, Alexis Unavailable Unavailable Medications date description facility 2023-04-19 00:00 bupropion hcl [facility] [place] 2023-04-19 00:00 bupropion hcl [facility] [place] 2023-04-20 00:00 bupropion hcl [facility] [place] 2023-05-23 00:00 bupropion hcl [facility] [place] 2023-04-19 00:00 propranolol [facility] [place] 2023-04-19 00:00 propranolol [facility] [place] 2023-04-20 00:00 propranolol [facility] [place] 2023-05-23 00:00 propranolol [facility] [place] 2023-04-19 00:00 cetirizine [facility] [place] 2023-04-19 00:00 cetirizine [facility] [place] 2023-04-20 00:00 cetirizine [facility] [place] 2023-05-23 00:00 cetirizine [facility] [place] 2023-04-19 00:00 cetirizine [facility] [place] 2023-04-19 00:00 cetirizine [facility] [place] 2023-04-20 00:00 cetirizine [facility] [place] 2023-05-23 00:00 cetirizine [facility] [place] 2023-04-19 00:00 propranolol [facility] [place] 2023-04-19 00:00 propranolol [facility] [place] 2023-04-20 00:00 propranolol [facility] [place] 2023-05-23 00:00 propranolol [facility] [place] 2023-04-19 00:00 propranolol [facility] [place] 2023-04-19 00:00 propranolol [facility] [place] 2023-04-20 00:00 propranolol [facility] [place] 2023-05-23 00:00 propranolol [facility] [place] 2023-04-19 00:00 sildenafil (pulm.hypertension) [facility] [place] 2023-04-19 00:00 sildenafil (pulm.hypertension) [facility] [place] 2023-04-19 00:00 sildenafil (pulm.hypertension) [facility] [place] 2023-04-19 00:00 cetirizine [facility] [place] 2023-04-19 00:00 cetirizine [facility] [place] 2023-04-20 00:00 cetirizine [facility] [place] 2023-05-23 00:00 cetirizine [facility] [place] 2023-04-19 00:00 albuterol sulfate [facility] [place] 2023-04-19 00:00 albuterol sulfate [facility] [place] 2023-04-20 00:00 albuterol sulfate [facility] [place] 2023-05-23 00:00 albuterol sulfate [facility] [place] 2023-04-19 00:00 albuterol sulfate [facility] [place] 2023-04-19 00:00 albuterol sulfate [facility] [place] 2023-04-20 00:00 albuterol sulfate [facility] [place] 2023-05-23 00:00 albuterol sulfate [facility] [place] 2023-04-19 00:00 cetirizine [facility] [place] 2023-04-19 00:00 cetirizine [facility] [place] 2023-04-20 00:00 cetirizine [facility] [place] 2023-05-23 00:00 cetirizine [facility] [place] 2023-04-19 00:00 sildenafil (pulm.hypertension) [facility] [place] 2023-04-19 00:00 sildenafil (pulm.hypertension) [facility] [place] 2023-04-19 00:00 sildenafil (pulm.hypertension) [facility] [place] 2023-04-19 00:00 bupropion hcl [facility] [place] 2023-04-19 00:00 bupropion hcl [facility] [place] 2023-04-20 00:00 bupropion hcl [facility] [place] 2023-05-23 00:00 bupropion hcl [facility] [place] 2023-04-19 00:00 sildenafil (pulm.hypertension) [facility] [place] 2023-04-19 00:00 sildenafil (pulm.hypertension) [facility] [place] 2023-04-19 00:00 sildenafil (pulm.hypertension) [facility] [place] 2023-04-19 00:00 albuterol sulfate [facility] [place] 2023-04-19 00:00 albuterol sulfate [facility] [place] 2023-04-20 00:00 albuterol sulfate [facility] [place] 2023-05-23 00:00 albuterol sulfate [facility] [place] 2023-04-19 00:00 albuterol sulfate [facility] [place] 2023-04-19 00:00 albuterol sulfate [facility] [place] 2023-04-20 00:00 albuterol sulfate [facility] [place] 2023-05-23 00:00 albuterol sulfate [facility] [place] 2023-04-19 00:00 bupropion hcl [facility] [place] 2023-04-19 00:00 bupropion hcl [facility] [place] 2023-04-20 00:00 bupropion hcl [facility] [place] 2023-05-23 00:00 bupropion hcl [facility] [place] 2023-04-19 00:00 propranolol [facility] [place] 2023-04-19 00:00 propranolol [facility] [place] 2023-04-20 00:00 propranolol [facility] [place] 2023-05-23 00:00 propranolol [facility] [place] 2023-04-19 00:00 sildenafil (pulm.hypertension) [facility] [place] 2023-04-19 00:00 sildenafil (pulm.hypertension) [facility] [place] 2023-04-19 00:00 sildenafil (pulm.hypertension) [facility] [place] 2023-04-19 00:00 bupropion hcl [facility] [place] 2023-04-19 00:00 bupropion hcl [facility] [place] 2023-04-20 00:00 bupropion hcl [facility] [place] 2023-05-23 00:00 bupropion hcl [facility] [place] Problems date description facility 2023-04-19 00:00 Abdominal pain, periumbilic [facility] [place] 2023-04-19 00:00 Abdominal pain, periumbilic [facility] [place] 2023-04-19 00:00 Abdominal pain, periumbilic [facility] [place] 2023-04-19 00:00 Periumbilical pain [facility] [place] 2023-04-19 00:00 Periumbilical pain [facility] [place] 2023-04-19 00:00 Periumbilical pain [facility] [place] Procedures date description facility 2023-04-19 00:00 Visit Code Hold [facility] [place] 2023-04-19 00:00 Visit Code Hold [facility] [place] 2023-04-19 00:00 Visit Code Hold [facility] [place] Results/Labs test date facility value unit notes Social History date description facility 2023-04-19 00:00 Former smoker [facility] [place] 2023-04-19 00:00 Former smoker [facility] [place] 2023-04-19 00:00 Former smoker [facility] [place] Vital Signs date measurement value units 2023-04-19 00:00 BMI 29.61 kg/m2 2023-04-19 00:00 BP_diastolic 77 mmHg 2023-04-19 00:00 BP_systolic 117 mmHg 2023-04-19 00:00 heart_rate 75 /min 2023-04-19 00:00 height_metric 172.72 cm 2023-04-19 00:00 height_standard 68 in 2023-04-19 00:00 respiration_rate 15 /min 2023-04-19 00:00 temperature_metric 36.89 C 2023-04-19 00:00 temperature_standard 98.4 F 2023-04-19 00:00 weight_metric 88.02 kg 2023-04-19 00:00 weight_standard 194.06 lb
[2023-06-04 15:43] LABS: ALBUMIN 4.8 g/dL (3.2-5.5); ALBUMIN/GLOBULIN RATIO 1.7 (1.0-2.2); BILIRUBIN,TOTAL 0.6 mg/dL (0.2-1.0); CREATININE 0.8 mg/dL (0.6-1.3); POTASSIUM 3.8 mmol/L (3.5-4.5); TOTAL PROTEIN 7.6 g/dL (6.4-8.9)
[2023-06-04] MEDS: SODIUM CHLORIDE 0.9% 1,000 ML IV STA (15:43)
--- NOTE | 2023-06-04 17:02 | CT Report ---
PROCEDURE: CT Angio Head/Neck INDICATIONS: syncope, CORRAL: ? aneurysm TECHNIQUE: After the administration of intravenous contrast, 1 mm thick sections acquired from the aortic arch t hrough the [employer] [place]. Post-contrast 4.5 mm thick sections then re-acquired from the foramen m agnum to the vertex. 3-dimensional kptoiva-hfjsakdzn-juzsjplvsu (MIP) and/or volume rendering reform ats were acquired of the central intracranial vasculature and neck separately. For radiation dose re duction, the following was used: automated exposure control, adjustment of mA and/or kV according to patient size. CONTRAST: 80mL Omni 300 COMPARISON: None. FINDINGS: Image quality: This study is limited by quantum mottle artifact. Limited by bolus timing, with venou s contamination. HEAD CT: CSF Spaces: Basal cisterns are patent. No extra-axial fluid collections. Ventricles are normal in size and shape. Brain: No midline shift. No intracranial bleeds or masses. No abnormal intracranial enhancement. Johnson-white interface appears normal. Skull and face: Calvarium and visualized facial bones appear intact, without suspicious lesions. Sinuses: Visualized sinuses and mastoids are clear. HEAD CT ANGIOGRAPHY: Anterior circulation: Intracranial internal carotid arteries are normal in size and flow. The flow within the paired anterior cerebral arteries is normal and symmetric. The flow within the middle cer ebral arteries is normal and symmetric. The anterior communicating artery is seen. No aneurysms are seen. Posterior circulation: Visualized portions of the vertebral arteries demonstrate normal caliber, and join to form a normal appearing basilar artery. Flow within the posterior cerebral arteries is norm al and symmetric. No aneurysms are seen. NECK CT ANGIOGRAPHY: Carotid system: The great vessels demonstrate a conventional anatomy as they arise from the aortic a rch. The origins of the common carotid arteries appear patent. The common carotid arteries demonstr ate normal caliber and courses. The bifurcation regions are both widely patent. The internal caroti d arteries demonstrate normal calibers and courses. Posterior circulation: The origins of the vertebral arteries both appear widely patent. The more franklin perior extracranial portions of both vertebral arteries also demonstrate normal courses and calibers. They join to form a normal appearing basilar artery. Soft tissues: Visualized neck soft tissues demonstrate no suspicious abnormalities. Bones: No suspicious bony lesions. Visualized cervical spine appears normally aligned. IMPRESSION: No intracranial aneurysm is seen. No significant intracranial arterial abnormalities are seen. No hemodynamically significant stenosis can be seen within the arteries of the neck. The estimate of stenosis included in the report of the imaging study was calculated using the NASCET method Reviewed by: Ortiz Wiley MD on 06/04/2023 4:01 PM JAIDEN Approved by: Ortiz Wiley MD on 06/04/2023 4:01 PM JAIDEN Station ID: [id number]
[2023-06-04 17:12] VITALS: BP 130/85; O2SAT 100
[2023-06-04] MEDS: iohexoL-300 100 ML VIAL IVP ONE (17:30)
== END 2023-06-04 17:22 | disposition home or self-care (01) ==
LOC: ED 14:56
DX: R55 Syncope and collapse (principal)
CPT/HCPCS: 36415; 80053; 83690; 84484; 85025; 93005; 99283; 99284

== ENCOUNTER 2023-09-24 10:51 | Emergency (ER) | payer MEDICAID ==
[2023-09-24] MEDS ORDERED: NIRMATRELVIR/RITONAVIR PREPACK PO STA (12:26)
--- NOTE | 2023-09-24 12:28 | ED Physician Documentation ---
History of Present Illness - Stated complaint Stated Complaint: SOA,C+ - Chief complaint Chief Complaint: Resp - History obtained from History obtained from: Patient - Additonal information Additional information: 28-year-old gentleman developed symptomatic COVID this morning with positive home test and would like paxlovid. His only prescribed medication was propranolol at this point and he was advised to cut the dose in half while on the Paxlovid. PD PAST MEDICAL HISTORY - Past Medical History Past Medical History: Yes Cardiovascular: Other Respiratory: None Neuro: None Endocrine/Autoimmune: None GI: Diverticulitis : None HEENT: None Psych: Depression Musculoskeletal: None Derm: None - Past Surgical History Past Surgical History: No General: Appendectomy HEENT: Myringotomy (tubes), Tonsil/Adenoidectomy - Present Medications Home Medications: Ambulatory Orders Medication Instructions Recorded Confirmed Propranolol [Inderal] 20 mg PO TID 08/07/22 06/04/23 - Allergies Allergies/Adverse Reactions: Allergies Allergy/AdvReac Type Severity Reaction Status Date / Time No Known Drug Allergies Allergy Verified 09/24/23 11:12 - Social History Does the pt smoke?: No Smoking Status: Never smoker Does the pt drink ETOH?: No Does the pt have substance abuse?: Yes Substance Use and Type: Marijuana - Immunizations Immunizations are current?: Yes - POLST Patient has POLST: No PD ED PE NORMAL - Vitals Vital signs reviewed: Yes - General General: Alert and oriented X 3, No acute distress - Respiratory Respiratory: No respiratory distress - Neuro Neuro: Alert and oriented X 3, Normal speech - Psych Psych: Normal mood, Normal affect Results - Vitals Vitals: Vital Signs - 24 hr 09/24/23 11:06 Temperature 37.4 C Heart Rate 91 Respiratory 16 Rate Blood Pressure 123/86 H O2 Saturation 98 Oxygen O2 Source Room air PD Medical Decision Making - ED course ED course: 28-year-old gentleman would like paxlovid for his COVID. He does not appear an extremis. Paxlovid prepack given. Departure - Departure Disposition: 01 Home, Self Care Clinical Impression: COVID Condition: Good Record reviewed to determine appropriate education?: Yes Instructions: ED Viral Syndrome Comments: Take the paxlovid per package instructions until gone. Otherwise conservative care at home with Tylenol and/or ibuprofen, drink plenty of fluids and rest. As discussed, I recommend cutting your propranolol dose in half while on the Paxlovid. Home quarantine for at least 5 days per CDC guidelines. Then wear a mask for another week or so.
[2023-09-24 12:52] VITALS: BP 122/84; O2SAT 100
== END 2023-09-24 12:46 | disposition home or self-care (01) ==
LOC: ED 10:51
DX: U07.1 COVID-19 (principal); Z79.899 Other long term (current) drug therapy
CPT/HCPCS: 99282; 99283; J3490